=== PATIENT | female | born 1990 | race Caucasian/White ===

== ENCOUNTER 2020-09-02 06:58 | Emergency (ER) | payer MEDICAID, SELFPAY ==
[2020-09-02 06:59] VITALS: BP 120/79; PULSE 69; RESP 18; TEMP 36.2; O2SAT 100; BMI 19.5
--- NOTE | 2020-09-02 07:33 | ED.VISSUMM ---
- ER Visit Summary Date of Service: 09/02/20 Chief Complaint: Vaginal bleeding History of Present Illness: The patient is a 29 F who presents with vaginal bleeding that has been getting worse over the past 3 to 4 days. Patient states she was recently on medication to stop the bleeding. Patient states she was tapered off of this. Patient states that when she stopped taking the medication her bleeding started again. Patient states she is having heavy vaginal bleeding. Patient states she is using 1 pad per hour while she is awake. She states she normally does not have any bleeding when she is sleeping. But the last couple days she has woken up and has had blood when she woke up. Patient states she only goes through 10-12 pads per day. Patient denies passing any clots. Patient denies any pelvic pain or cramping. Patient denies any vaginal discharge. Patient denies any urinary complaints. She states she was diagnosed with uterine polyp. Patient states that yesterday she brought her daughter to the emergency department. Patient states that she noticed her skin was more yellow yesterday when she was in the emergency department. Patient was not evaluated at that time. Physical Examination: Vital signs are stable. Patient is afebrile. Patient is in no acute distress. Pupils are equal, round, and reactive to light bilaterally. Extraocular muscles are intact. I do not appreciate any scleral icterus. Oral mucosa is pink and moist. Neck is supple. Trachea is midline. There is no JVD noted. Heart was regular rate and rhythm. Lungs are clear and equal bilaterally. Abdomen is soft. Bowel sounds are normal. There is no tenderness. There is no rebound or guarding noted. Skin is warm dry. Cranial nerves II through XII are intact. There are no focal motor or sensory deficits noted. Extremities are intact. There is no calf tenderness or edema. Test Results: CBC and comprehensive metabolic profile were essentially within normal limits. Serum hCG was negative. Urinalysis showed occult blood of 250 with 50-100 red blood cells. There is no evidence of urinary tract infection. Emergency Department Course and Treatment: Case was discussed with Vianney Torres, wood machinist with [facility]. She recommended placing the patient back on an Aygestin taper. Patient was given a prescription for this. Patient was instructed to follow-up with [facility] as scheduled. Patient understood and was agreeable with the plan. All questions were answered. Disposition: Discharge home Impression: Menorrhagia This note was generated with Nu-Med Plus dictation software. It may contain incorrect words, spelling, and punctuation that were not noted in review of the chart prior to signing ED Disposition - Plan for ED Patient: Disposition: Home or Assisted Living Diagnosis: Menorrhagia Instructions: ED Heavy Menstrual Bleeding Prescriptions: Norethindrone [Aygestin] 5 mg PO DAILY 9 Days #18 tab Transmission Status: Pending to [employer] #[id number] Referrals: Marisel Goldsmith MD [STAFF PHYSICIAN] - Keep Shan appointment
[2020-09-02 07:40] LABS: Absolute Lymphocyte Count 1.72 X10^3/uL (0.83-4.51); Absolute Neutrophil Count 2.4 X10^3/uL (2.0-7.7); Basophil# 0.05 X10^3/uL; Eosinophil# 0.43 X10^3/uL; Eosinophils% 8.7 % (0-5); Hematocrit 39.6 % (37-47); Hemoglobin 12.6 g/dL (12.0-15.0); Lymphocyte # 1.72 X10^3/ul (4.0); Lymphocyte % 34.7 % (19-41); Mean Corp Hgb Conc 31.8 g/dL (32-36); Mean Corpuscular Hgb 30.3 pg (27.0-32.0); Mean Corpuscular Volume 95.2 fL (81-99); Mean Platelet Vol. 9.1 fl (6.2-12.0); Monocyte# 0.34 X10^3/uL; Monocyte% 6.9 % (0-10); NRBC Flagged by Analyzer 0 % (0-5); Neutrophil % 48.5 % (47-70); Platelet Count 242 K/mm3 (150-450); RBC Distribution Width SD 45.5 fl (35.1-43.9); Red Blood Count 4.16 M/mm3 (4.2-5.4)
[2020-09-02 07:44] LABS: Prothrombin Time (Protime)PT. 12.9 SECONDS (11.7-14.9)
[2020-09-02 07:45] LABS: Partial Thromboplast Time 27.2 Seconds (24.1-36.2)
[2020-09-02 07:47] LABS: Mucous, Urine 0 SEEN /hpf (<or=2+)
[2020-09-02 07:49] LABS: Internal QC Validated? YES +Cl - CLEAR BKGD; Pregnancy, Serum, hCG Quali. NEGATIVE Negative
[2020-09-02 07:49] LABS: Color, Urine Red (Yellow); Glucose, Dipstick Normal (Normal); Ketone-Dipstick 5 mg/dl (Negative); Leukocyte Esterase-Dipstick 25 /ul (Negative); Nitrite-Dipstick Negative (Negative); Occult Blood-Urine 250 /ul (Negative); Protein-Dipstick 100 mg/dl (Negative); Specific Gravity, Urine 1.015 (1.002-1.030); Urine Bilirubin Dipstick Negative (Negative); Urine Clarity Cloudy (Clear); Urine Urobilinogen Normal (Normal)
[2020-09-02 07:50] LABS: ALB/GLOB Ratio 1.2 RATIO (0.9-2.4); AST(SGOT) 12 U/L (15-37); Alanine Aminotransfer ALT/SGPT 23 U/L (13-56); Albumin, Serum 3.6 g/dL (3.2-5.0); Alkaline Phosphatase 57 U/L (45-117); Anion Gap 3 (5-15); BUN 14 mg/dL (7-18); BUN/Creat Ratio 16.8 RATIO (10-20); Calcium,Total 8.2 mg/dL (8.5-10.1); Chloride 111 mmol/L (98-107); Creatinine, Serum 0.84 mg/dL (0.55-1.02); EST Glomerular Filtration Rate 86 mL/min (>60); Est Glom Filt Rate - Afr Amer 104 mL/min (>60); Globulin 3.1 g/dL (2.2-4.2); Glucose 82 mg/dL (74-106); Potassium 3.6 mmol/L (3.5-5.1); Protein, Total 6.7 g/dL (6.4-8.2); Sodium Level 142 mmol/L (136-145)
[2020-09-02 07:56] LABS: Bacteria 1+ /hpf (None Seen); Red Blood Cells-Urine 50-100 SEEN /hpf (0-5); Squamous Epithelial Cells - UA 0-5 SEEN /hpf (5-10); White Blood Cells 0-5 SEEN /hpf (0-5)
[2020-09-02 08:31] VITALS: BP 113/62; PULSE 74; RESP 15; O2SAT 98
== END 2020-09-02 08:34 | disposition home or self-care (01) ==
PROVIDERS: Emergency Provider Emergency Medicine; PCP Internal Medicine
DX: N92.0 Excessive and frequent menstruation with regular cycle (principal); Z72.0 Tobacco use
CPT/HCPCS: 80053; 81001; 84703; 85025; 85610; 85730; 99284; A4216

== ENCOUNTER 2020-09-15 09:30 | Day surgery (SDC) | payer MEDICAID, SELFPAY ==
--- NOTE | 2020-09-07 10:45 | PCM.HP.BLA ---
History and Physical Date of Admission: 09/15/20 HPI: The patient is a 29 year old female presenting for pre-operative visit. She is scheduled for?Hysteroscopy D&C, for?AUB on?09/15/2020. ??Procedure discussed along with risks, benefits and complications. ?Other alternatives discussed for management. Consent form signed??Yes.? PAST MEDICAL HISTORY PAST MEDICAL HISTORY Diagnosis Date ? Alcohol abuse ? ? Anemia ? ? Anxiety ? ? Bipolar 1 disorder (HCC) ? ? Depression ? ? Drug abuse (HCC) ? ? Eating disorder ? ? PTSD (post-traumatic stress disorder) ? ? ? PAST SURGICAL HISTORY PAST SURGICAL HISTORY Procedure Laterality Date ? NONE ? CURRENT MEDICATIONS Current Outpatient Medications Medication Sig Dispense Refill ? BIOTIN ORAL Take 50 mg by mouth once daily. ? ? ? norethindrone (AYGESTIN) 5 mg tablet Take 1 tablet TID until bleeding stops, the BID x 3 days, the daily x 3 days. 35 tablet 0 ? Desogestrel-Ethinyl Estradiol (APRI) 0.15-0.03 mg per tablet Take 1 tablet by mouth once daily. 1 Package 11 ? sertraline (ZOLOFT) 100 mg tablet Take 1 tablet by mouth once daily. 30 tablet 5 ? No current facility-administered medications for this visit. ? ALLERGIES:?Latex ? PERSONAL HISTORY:? SOCIAL HISTORY Social History ? Tobacco Use ? Smoking status: Current Every Day Smoker ? ? Packs/day: 0.50 ? ? Types: Cigarettes ? ? Start date: 09/16/1999 ? Smokeless tobacco: Never Used ? Tobacco comment: 2 PPD first 5 years. Vaping Use ? Vaping Use: Never used Substance Use Topics ? Alcohol use: Not Currently ? ? Comment: clean since 04/2017 ? Drug use: Not Currently ? ? Types: Crystal Meth ? ? Comment: clean since 04/2017 ? FAMILY HISTORY:? FAMILY HISTORY FAMILY HISTORY Problem Relation Age of Onset ? Schizophrenia Mother ? ? Parkinson?s Disease Father ? ? Heart Attack Father ? ? Coronary Artery Disease Father ? ? Learning disabilities Brother ? ? Cancer Maternal Grandmother ? ? Alcohol/Drug Maternal Grandmother ? ? Heart Attack Maternal Grandfather ? ? Learning disabilities Brother ? ? Heart Attack Paternal Grandfather ? ? REVIEW OF SYMPTOMS: GENERAL: denies fevers or chills ENDOCRINOLOGY: has not been on steroids Cardiology : denies palpitations or chest pain Respiratory: denies SOB or cough Hematology: denies history of prolonged bleeding or easy bruising or VTE Allergy: Denies history of personal or family history of allergy to anesthesia ? ? PHYSICAL EXAMINATION: ? VITALS:?Last menstrual period 08/21/2020. ? GENERAL:??The patient is well nourished, well hydrated in no acute distress. ?, The patient is oriented to time, place, and person. NECK:?Supple. No lynphadenopathy, normal thyroid, no thyromegaly. LUNGS:?Clear to auscultation bilaterally. no wheezes, rhonchi or rales HEART:?Regular rate and rhythm, Normal heart sounds and No murmurs or gallops ? IMPRESSION:?AUB ? PLAN:???The risks/benefits/alternatives and personal involved for the planned?hysteroscopy D&C with possible polyp resection?were reviewed with the patient. Her questions were answered to her satisfaction and she desires to proceed. ?Consent was signed. ?I reviewed with her postop instructions and expectations. ? ? I have reviewed and updated past medical and surgical history, medications and allergies. This H&P was completed in my office on 09/07/2020. Procedure Criteria Procedure Type: Elective COVID Risk Discussion: The surgeon/proceduralist and patient have discussed in detail the risk of exposure to and/or potential harm posed by the COVID-19 virus with having a surgery/procedure at this time versus the risk of delaying the surgery/procedure. It is not possible to know either the risk of delaying the surgery or procedure or chance of getting an infection with perfect accuracy, but a joint decision was made between the patient and the surgeon/proceduralist to proceed at this time with the scheduled surgery/procedure as indicated on the consent form.
[2020-09-15] VITALS (16 sets, daily range): BP systolic 91–109; BP diastolic 59–76; PULSE 54–67; RESP 16; TEMP 36.5–37.1; O2SAT 98–100; BMI 19.5
[2020-09-15 10:16] LABS: Internal QC Validated? YES +Cl - CLEAR BKGD; Pregnancy, Urine Negative Negative
[2020-09-15] MEDS: Celecoxib 200 MG Capsule 400 MG PO (10:16)
[2020-09-15] MEDS: Lactated Ringers 1,000 ML 100 ML IV (10:16)
[2020-09-15] MEDS: Acetaminophen 500 MG Tablet 1000 MG PO (10:17)
--- NOTE | 2020-09-15 11:30 | EMB_PTH ---
PATIENT: ARAMIS BRYANT [place] [facility] [id number] AGE/SX: 29/F ROOM: RE09/15/[address]: Dr. Marisel Goldsmith MD : 1990 BED: DIS: 09/15/2020 SPEC #: [id number] RECD: 09/15/20 13:25 STATUS: LA REBryan #: [id number] MARIZA: 09/15/20 11:[address]: Marisel Goldsmith DEPT: SURGICAL PATHOLOGY RECD BY: Louisa Whitney ENTERED: 09/16/20 07:12 SP TYPE: ENDOM BX/C OTHR DR: Dr. Williams Cevallos MD Tissues: Endometrium, NOS Procedures: Surgery Specimen Level IV HEADER OPERATION: Hysteroscopy D & C Symphion, polypectomy PRE-OP DIAGNOSIS: Abnormal uterine bleeding TISSUE SUBMITTED: Endometrial curettings and polyp MICROSCOPIC DIAGNOSIS Endometrial curettings and polyp: Early secretory endometrium. Fragments of myometrium. SJ:sabina 09/19/2020 MICROSCOPIC DESCRIPTION Slides are reviewed. GROSS DESCRIPTION Received in fixative is one container labeled with the patient's name and designated endometrial curettings and polyp. The specimen consists of multiple irregular fragments of light hernández soft tissue that in aggregate measure 6 x 3 x 0.2 cm. The specimen is totally submitted in two cassettes. / AM:sabina 09/16/20 TC:4 CPT: 43840
--- NOTE | 2020-09-15 12:10 | DCINST_ITS ---
Discharge Diet: No Restrictions Discharge Activity: Return to Normal Activity, May Shower, May Take a Tub Bath - in 2 weeks. Instructions: Dilation and Curettage Allergies/Adverse Reactions: Allergies latex Allergy (Verified 09/15/20 10:01) Rash Medications to take at Discharge Sertraline HCl [Zoloft] 100 mg PO DAILY 09/02/20 Desogestrel-Ethinyl Estradiol [Juleber 28 Day Tablet] 1 each PO DAILY 09/08/20 Ibuprofen [Motrin] 600 mg PO Q6H PRN #60 tab 09/15/20 The following prescriptions were given: Ibuprofen [Motrin] 600 mg PO Q6H PRN #60 tab PRN Reason: Pain Transmission Status: [facility] to [facility] Primary Care Physician: Williams Cevallos MD [Primary Care Provider] - Test Results: Test results from this visit will be discussed in further detail at your follow- up appointment, if applicable. Please Follow Up With: Marisel Goldsmith MD - [phone] When: 8-10 weeks or as needed
[2020-09-15] MEDS: Lidocaine 1% /Epi 1:100 (20ml) 20 ML Vial (12:17)
--- NOTE | 2020-09-15 12:28 | PCM.OPRPT ---
Report of Operation Date of Procedure: 09/15/20 Pre-Operative Diagnosis: Abnormal uterine bleeding Post-Operative Diagnosis: same Surgery/Procedure Performed:: Hysteroscopy D&C with Symphion device, polyp resection Description of Surgical Findings:: Normal cervix and vagina. Endometrial cavity had a fundal lip. Both tubal ostia were identified. Otherwise unremarkable endometrial cavity software quality analyst: None Type of Anesthesia:: MAC/Supplemental/Local Special Medications: none Specimen's removed: endometrial curettings and polyp Drains: none Estimated Blood Loss (mL): 5 Fluids Replaced: 800 mL Description of Procedure: The patient was taken to the OR where she was prepped and draped in dorsal lithotomy position. The weighted speculum was placed in the vagina and the anterior lip of the cervix was grasped with a single-tooth tenaculum. A paracervical block was administered with [1% lidocaine with 1-100,000 epinephrine solution]. The cervix was dilated serially with Hegar dilators. The Symphion hysteroscope was placed into the uterine cavity and the above findings were noted. Bilateral tubal ostia [were] identified. The resection device was readied and inserted. A visual resection of the polyp in the endometrium were performed.. The instruments were removed from the vagina. The specimen was handed off and sent to pathology. All sponge and needle counts were correct. Vaginal sweep was performed by me. The patient was awakened and taken to the recovery room in stable condition. Hysteroscopic fluid deficit was calculated to be 450 cc of normal saline. start time 1215pm Stop time 1226pm Specimen- endometrial curettings and polyp Grafts/Implants Used: none - Complications none - Admit VTE Documentation VTE Present on Admission: No VTE Mechan Device Prophylaxis: SCD's VTE Pharm Prophylaxis ordered?: No Reason prophylaxis not ordered:: Procedure Not Indicated
== END 2020-09-15 15:29 | disposition home or self-care (01) ==
LOC: SDC 09:30 → AC 09:31
PROVIDERS: PCP Internal Medicine; Referring Provider Obstetrics & Gynecology; Visit Provider Obstetrics & Gynecology
PROC: 0UB98ZZ Excision of Uterus, Via Natural or Artificial Opening Endoscopic (ICD-10-PCS; CPT 58558; principal; 2020-09-15 11:15)
DX: N93.9 Abnormal uterine and vaginal bleeding, unspecified (principal); N84.0 Polyp of corpus uteri; F31.9 Bipolar disorder, unspecified; F41.9 Anxiety disorder, unspecified; F43.10 Post-traumatic stress disorder, unspecified; F17.210 Nicotine dependence, cigarettes, uncomplicated; Z20.822 Contact with and (suspected) exposure to COVID-19; Z79.899 Other long term (current) drug therapy
CPT/HCPCS: 00952; 58558; 81025; 87426; 88305; C9803; J7120

== ENCOUNTER 2020-12-22 22:18 | Emergency (ER) | payer MEDICAID, SELFPAY ==
[2020-09-15 10:02] VITALS: BMI 19.5
[2020-12-22 22:19] VITALS: BP 108/75; PULSE 76; RESP 16; TEMP 36.6; O2SAT 96; BMI 19.9
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
[2020-12-22] MEDS: Ketorolac 15 MG/ML Vial IM (22:45)
[2020-12-22 22:47] VITALS: O2SAT 99
== END 2020-12-22 22:49 | disposition home or self-care (01) ==
LOC: ED 22:39
PROVIDERS: Emergency Provider Student in an Organized Health Care Education/Training Program; PCP Internal Medicine
DX: S16.1XXA Strain of muscle, fascia and tendon at neck level, initial encounter (principal); V89.2XXA Person injured in unspecified motor-vehicle accident, traffic, initial encounter; Y93.89 Activity, other specified; Y92.410 Unspecified street and highway as the place of occurrence of the external cause; Y99.9 Unspecified external cause status; F17.210 Nicotine dependence, cigarettes, uncomplicated
CPT/HCPCS: 96372; 99282

== ENCOUNTER 2021-06-16 12:00 | Emergency (ER) | payer MEDICAID, SELFPAY ==
[2021-06-16 12:01] VITALS: BP 122/81; PULSE 96; RESP 16; TEMP 36.6; O2SAT 99; BMI 19.8
--- NOTE | 2021-06-16 12:39 | RAD_ITS ---
STUDY: X-RAY CHEST REASON FOR EXAM: Female, 30 years old. Chest pain TECHNIQUE: Single AP portable view of the chest. COMPARISON: None. FINDINGS: EKG electrodes are seen. The lungs are clear and expanded. There is no demonstrated pleural abnormality. Normal size heart. Normal mediastinum and ifeoma. Normal visualized pulmonary arteries. Normal visualized aortic arch and descending thoracic aorta. Normal visualized thoracic spine. Normal visualized ribs, clavicles, and shoulders. There is no demonstrated abnormality of the visualized soft tissue structures of the upper abdomen. RAD/Chest 1 View (Portable) IMPRESSION: Normal x-ray examination of the chest. Electronically Signed: David Levy MD at 13:03 EST , Service support ,
--- NOTE | 2021-06-16 12:39 | EKG12_ITS ---
Test Reason : PALPATATIONS Blood Pressure : / mmHG Vent. Rate : 079 BPM Atrial Rate : 079 BPM P-R Int : 128 ms QRS Dur : 088 ms QT Int : 380 ms P-R-T Axes : 075 081 065 degrees QTc Int : 435 ms Normal sinus rhythm Normal ECG Confirmed by NANCY GALAN, KARO ([id number]), tape editor SUSAN GAN ([id number]) on 06/19/2021 11:02:36 AM Referred By: MARBIN/SALENA Confirmed By:KARO CRUZ MD
[2021-06-16 12:51] LABS: Absolute Neutrophil Count 2.1 X10^3/uL (2.0-7.7); Basophil# 0.03 X10^3/uL; Basophil% 0.7 % (0-1); Eosinophil# 0.28 X10^3/uL; Eosinophils% 6.5 % (0-5); Hemoglobin 12.8 g/dL (12.0-15.0); Lymphocyte % 36.9 % (19-41); Mean Corp Hgb Conc 33.7 g/dL (32-36); Mean Corpuscular Hgb 30.5 pg (27.0-32.0); Mean Corpuscular Volume 90.5 fL (81-99); Mean Platelet Vol. 9.3 fl (6.2-12.0); Monocyte# 0.32 X10^3/uL; Monocyte% 7.4 % (0-10); NRBC Flagged by Analyzer 0 % (0-5); Neutrophil % 48.3 % (47-70); Platelet Count 235 K/mm3 (150-450); RBC Distribution Width CV 13.2 % (11.6-14.6); RBC Distribution Width SD 43.4 fl (35.1-43.9); White Blood Count 4.3 K/mm3 (4.4-11.0)
[2021-06-16 13:05] LABS: Anion Gap 2 (5-15); BUN 11 mg/dL (7-18); Calcium,Total 8.7 mg/dL (8.5-10.1); Chloride 111 mmol/L (98-107); Creatinine, Serum 0.69 mg/dL (0.55-1.02); EST Glomerular Filtration Rate 107 mL/min (>60); Est Glom Filt Rate - Afr Amer 129 mL/min (>60); Estimated Creatinine Clearance 116.04 ml/min; Glucose 85 mg/dL (74-106); Potassium 3.6 mmol/L (3.5-5.1); Sodium Level 140 mmol/L (136-145); Troponin-I HS < 3 pg/mL (3.0-54.0)
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
[2021-06-16 14:44] VITALS: BP 104/74; PULSE 62; RESP 16; O2SAT 98
== END 2021-06-16 14:44 | disposition home or self-care (01) ==
PROVIDERS: Emergency Provider Student in an Organized Health Care Education/Training Program; PCP Internal Medicine; Visit Provider Student in an Organized Health Care Education/Training Program
DX: R00.2 Palpitations (principal); F17.210 Nicotine dependence, cigarettes, uncomplicated; F32.A Depression, unspecified; F41.9 Anxiety disorder, unspecified; Z79.899 Other long term (current) drug therapy
CPT/HCPCS: 71045; 80048; 84484; 85025; 93005; 99285; A4216

== ENCOUNTER 2021-10-30 21:13 | Emergency (ER) | payer MEDICAID, SELFPAY ==
[2021-10-30 21:14] VITALS: BP 113/78; PULSE 96; RESP 15; TEMP 37; O2SAT 98; BMI 19.9
--- NOTE | 2021-10-30 21:48 | EX.ED.UPPERE ---
HPI History of Present Illness Chief Complaint: Laceration Informant: patient Onset/Context/Timing Onset: Today Context: Sudden Onset Timing: Continuous Quality of Pain: - (sore) Current Severity: Mild Maximum Severity: Moderate Worsened by: palpation Relieved by: leaving alone Associated Symptoms Associated Symptoms: Negative for Parasthesia, Weakness and Loss of Funtion Narrative Narrative: Patient states she went on onto her porch and accidentally locked the door behind her, her 1-year-old child was inside and she broke the glass to unlock the door to get back into her. She sustained a laceration to her left small finger as a result. [id number]. Tetanus Immunization: <5 years [facility] Medical History Anxiety Depression Home Medications hydroxyzine pamoate 25 mg PO DAILY 06/16/21 [History Last Taken Unknown] melatonin 3 mg PO PCHS 06/16/21 [History Last Taken Unknown] Allergy/AdvReac Type Severity Reaction Status Date / Time latex Allergy Rash Verified 10/30/21 21:14 Social History Smoking Status: Current every day smoker tobacco type: cigarettes ROS ROS ED Constitutional Constitutional ED: Denies chills or fever(s) Musculoskeletal Musculoskeletal: Reports extremity pain; Denies neck pain Integumentary Reports as per HPI, laceration and wounds; Denies Abrasions or rash Neurologic Neurologic: Denies paresthesias or weakness EXAM Physical Exam Const Vital Signs: 10/30/21 21:14 Temperature 98.6 F Temperature Source Temporal Pulse Rate 96 Respiratory Rate 15 Blood Pressure 113/78 Blood Pressure Mean 89 Pulse Ox 98 Oxygen Delivery Method Room Air Positive well nourished and well developed General Appearance ED: well developed and NAD Neck full ROM and supple Back/Spine normal ROM and normal to inspection Extremity full ROM Extremity Narrative: No bony tenderness, full range of motion left hand/fingers. No nail damage or subungual hematoma/laceration. Neuro oriented x3, no focal motor deficits and no sensory deficits noted Sensorium / Orientation: alert Psych mental status grossly normal and thought process normal Skin Skin Narrative: 3 cm linear full-thickness subcutaneous laceration to the ulnar aspect of the distal phalanx left fifth finger. It goes to the side of the nail but does not damage the nail or the cuticle. Rashes: no rashes Procedures Lacerations L small finger: Length: 3 cm Depth: Sub Q Shape: Linear Prep: Sterile Conditions and Chlorhexadine Laceration repair: Lidocaine with epi (1cc) and Local Irrigated (ml): 40 Number of Sutures/David: 4 Suture Information: Ethilon, Simple and 5-0 Discharge Plan Triage Chief Complaint: Laceration ED Provider: Ben Estrada Dx/Rx/DC Orders Clinical Impression: Laceration of left little finger w/o foreign body w/o damage to nail Instructions: ED Laceration, Hand: All Closures Prescriptions: No Action melatonin 3 mg tablet 3 mg PO PCHS RF: 0 hydroxyzine pamoate 25 mg capsule 25 mg PO DAILY RF: 0 Primary Care Provider: Williams Cevallos Referrals: Williams Cevallos MD [Primary Care Provider] - 7 Days for suture removal (Or may visit urgent care or ER) Disposition Disposition: Home, Self Care
== END 2021-10-30 22:05 | disposition home or self-care (01) ==
PROVIDERS: Emergency Provider Emergency Medicine; PCP Internal Medicine; Visit Provider Emergency Medicine
DX: S61.217A Laceration without foreign body of left little finger without damage to nail, initial encounter (principal); W25.XXXA Contact with sharp glass, initial encounter; Y92.008 Other place in unspecified non-institutional (private) residence as the place of occurrence of the external cause; Y93.89 Activity, other specified; F17.210 Nicotine dependence, cigarettes, uncomplicated
CPT/HCPCS: 12002; 11750; 99283

== ENCOUNTER 2021-11-20 18:30 | Emergency (ER) | payer MEDICAID, SELFPAY ==
[2021-11-20] VITALS (7 sets, daily range): BP systolic 94–147; BP diastolic 60–90; PULSE 59–129; RESP 15–22; TEMP 36.2–37.6; O2SAT 97–99; BMI 18.0
--- NOTE | 2021-11-20 18:42 | EKG12_ITS ---
Test Reason : PSYCH Blood Pressure : / mmHG Vent. Rate : 057 BPM Atrial Rate : 057 BPM P-R Int : 144 ms QRS Dur : 088 ms QT Int : 412 ms P-R-T Axes : 075 085 071 degrees QTc Int : 401 ms Sinus bradycardia Incomplete right bundle branch block Confirmed by NANCY GALAN, KARO ([id number]), society editor SUSAN GAN ([id number]) on 11/21/2021 9:05:21 AM Referred By: SHANELL Confirmed By:KARO CRUZ MD
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
[2021-11-20] MEDS: Ziprasidone IM 20 MG/ML VIAL IM (19:02)
[2021-11-20] MEDS: LORazepam 2 MG/ML Syringe IM (19:25)
[2021-11-20] MEDS: DiphenhydrAMINE 50 MG/ML Syringe IM (19:25)
[2021-11-20] MEDS: Haloperidol Lactate 5 MG/ML Vial IM (19:25)
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
[2021-11-20 20:16] LABS: Absolute Lymphocyte Count 1.17 X10^3/uL (0.83-4.51); Absolute Neutrophil Count 4.7 X10^3/uL (2.0-7.7); Basophil# 0.03 X10^3/uL; Basophil% 0.5 % (0-1); Eosinophil# 0.08 X10^3/uL; Eosinophils% 1.2 % (0-5); Hematocrit 34.2 % (37-47); Lymphocyte # 1.17 X10^3/ul (0.83-4.51); Lymphocyte % 18.2 % (19-41); Mean Corp Hgb Conc 32.2 g/dL (32-36); Mean Corpuscular Hgb 29.6 pg (27.0-32.0); Mean Corpuscular Volume 92.2 fL (81-99); Mean Platelet Vol. 9.2 fl (6.2-12.0); Monocyte# 0.37 X10^3/uL; Monocyte% 5.8 % (0-10); NRBC Flagged by Analyzer 0 % (0-5); Neutrophil # 4.74 X10^3/uL (2.7-7.7); Neutrophil % 73.8 % (47-70); Platelet Count 213 K/mm3 (150-450); RBC Distribution Width CV 13.4 % (11.6-14.6); RBC Distribution Width SD 45.6 fl (35.1-43.9); Red Blood Count 3.71 M/mm3 (4.2-5.4); White Blood Count 6.4 K/mm3 (4.4-11.0)
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
[2021-11-20 20:34] LABS: Anion Gap 6 (5-15); BUN 7 mg/dL (7-18); BUN/Creat Ratio 7.4 RATIO (10-20); Calcium,Total 8.6 mg/dL (8.5-10.1); Chloride 113 mmol/L (98-107); Creatinine, Serum 0.95 mg/dL (0.55-1.02); EST Glomerular Filtration Rate 73 mL/min (>60); Est Glom Filt Rate - Afr Amer 89 mL/min (>60); Estimated Creatinine Clearance 82.43 ml/min; Glucose 106 mg/dL (74-106); Potassium 3.3 mmol/L (3.5-5.1); Sodium Level 145 mmol/L (136-145)
[2021-11-20 20:35] LABS: Internal QC Validated? YES +Cl - CLEAR BKGD; Pregnancy, Serum, hCG Quali. NEGATIVE Negative
--- NOTE | 2021-11-20 20:35 | CM.ED ---
Addendum entered by Matilda Hobson 11/20/21 20:57: Telephone call to Crisis to update. Referral sent to Crisis so crisis is able to continue work on psych placement for pt. Original Note: Social Work Note SW faxed referral to [facility] and [facility]. Matilda Hobson FACILITY SERVICE ASSOCIATE, INCLUSION MANAGER
[2021-11-20 21:21] LABS: Amphetamine Urine VISTA NEGATIVE (<1000 ng/mL); Barbiturate Urine VISTA NEGATIVE (< 200 ng/mL); Benzodiazepine Urine VISTA NEGATIVE (< 200 ng/mL); Cocaine Urine VISTA NEGATIVE (< 300 ng/mL); Ecstacy Urine VISTA NEGATIVE (< 500 ng/mL); Methadone Urine VISTA NEGATIVE (< 300 ng/mL); PCP Urine VISTA NEGATIVE (< 25 ng/mL); THC Urine VISTA POSITIVE (< 50 ng/mL); Vista UDS pH Range 6
[2021-11-21] VITALS (12 sets, daily range): BP systolic 85–101; BP diastolic 53–68; PULSE 55–66; RESP 16–58; O2SAT 16–100
[2021-11-21] MEDS: DiphenhydrAMINE 50 MG/ML Syringe 25 MG IM (01:44)
[2021-11-21] MEDS: LORazepam 2 MG/ML Syringe IM (01:44)
[2021-11-21] MEDS: Haloperidol Lactate 5 MG/ML Vial IM (01:44)
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
--- NOTE | 2021-11-21 01:45 | ED.RN ---
PT WAKES UP AND IS DEMANDING TO SEE HER DAUGHTER. INFORMED BY RN OF WHERE PT IS, REASONING FOR BEING HERE, AND TO GO BACK INTO PT ROOM. PT REFUSED AND TRIED TO RUN DOWN HALLWAY. PT STOPPED AND PUT BACK INTO ROOM.
--- NOTE | 2021-11-21 08:06 | ED.RN ---
SPOKE WITH [facility] TRANSFER LINE. PT. HAS BEEN ACCEPTED, PENDING THAT PT. WILL NOT BE MEDICATED OR RESTRAINED ANYMORE PRIOR TO ARRIVAL AT [place]. PT. CANNOT ARRIVE UNTIL 1330 TODAY, DUE TO PENDING BED ASSIGNMENT AVAILABILITY.
--- NOTE | 2021-11-21 08:17 | NURSING ---
SPOKE WITH NATALIE FROM [facility] FOR 12:30 TO WIP
--- NOTE | 2021-11-21 10:07 | CM.ED ---
Social Work Note Telephone call to Crisis who confirms pt has been accepted to [facility]. SW received call from James with [facility] CPS requesting information pt's discharge. James updated that pt will go to [facility] today pending she does not need restrained again before transportation. Matilda Hobson POULTICE MACHINE OPERATOR, MEAT MANAGER
--- NOTE | 2021-11-21 11:53 | CM.ED ---
Social Work Note Pt has been accepted to [facility]. Accepting physician is Mayte Karimi NP. Pt is going to Acute Unit. Matilda Hobson DRY CLEANER PRESSER, COREMAKER SUPERVISOR
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
== END 2021-11-21 12:12 ==
PROVIDERS: Emergency Provider Emergency Medicine; PCP Internal Medicine; Visit Provider Emergency Medicine
DX: F29 Unspecified psychosis not due to a substance or known physiological condition (principal); R45.1 Restlessness and agitation; F32.A Depression, unspecified; F41.9 Anxiety disorder, unspecified; F17.210 Nicotine dependence, cigarettes, uncomplicated
CPT/HCPCS: 80048; 80307; 82077; 84703; 85025; 87811; 93005; 96372; 99285; J3486

== ENCOUNTER 2022-01-01 08:00 | Outpatient (RCR) | payer MEDICAID, SELFPAY ==
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
--- NOTE | 2022-01-01 10:05 | BH.SGPN.GN ---
Behaviors/Verbalizations/Mental Status: [] Client alert and oriented, neatly dressed and groomed. Eye contact good. Motor activity appropriate. Speech within normal limits. Affect constricted, mood euthymic and anxious. Thoughts linear, logical, no signs of hallucinations or delusions Client Response/Progress/Benefit: [] Client's 1st day in program and attentive in group AEB providing input throughout group and writing notes. Attentive during psychoeducation on 4 types of conflict styles (Competing, Collaborating, Avoiding, and Accommodating). Worked with group to define conflict and identify how conflict is helpful. With peers identified barriers to addressing or managing conflict which included: fear of upsetting others, fear of the outcome, and lack of confidence. Client believes she uses accommodating and competing styles the most. Client shared that she feels like she is learning how to deal with conflict after never talked things through when she was growing up. Appeared to benefit from group due to increase insight and awareness of benefits to conflict, conflict styles, and obstacles to managing conflict. Will continue in IOP to increase overall functioning, prevent decompensation, and increase coping utilization. Narrative Note: []
--- NOTE | 2022-01-01 11:07 | BH.SGPN.GN ---
Behaviors/Verbalizations/Mental Status: [] Client alert and oriented, neatly dressed and groomed. Eye contact good. Motor activity appropriate. Speech within normal limits. Affect constricted, mood euthymic and anxious. Thoughts linear, logical, no signs of hallucinations or delusions. Client Response/Progress/Benefit: [] Client engaged in session AEB contributing to discussion and engaging in activity. Client did well to review current conflict style and its impact on mental health. Attentive during discussion on strategies for more effectively managing conflict in personal life. Client participated in activity and did well to be assertive and collaborating. Client given handout on fair fighting rules. Client discussed how she plans on practicing expressing herself in words and utilizing I statements. Appeared to benefit from gaining strategies to help client better manage conflict. Will continue IOP tx to reduce negative thinking patterns, prevent decompensation, and increase self-care. Narrative Note: []
--- NOTE | 2022-01-01 14:19 | BH.COMM ---
Communication Note - Communication with Client Communication Note: Therapist met briefly with client to build rapport, review first day in IOP and discussed treatment goals for IOP. Client reported she is seeking treatment because she has to be here in order to get her daughter back from foster care. Client stated she lost custody of her daughter after smoking marijuana, getting really angry which she stated led to her hospitalization. 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 Client reported she was angry that she didn't have any support. Client stated her mom is in psychiatric facility due to having paranoid schizophrenia and committing a murder when client was 5 years old. Client's father is . Client reports limited relationship with her brothers. Client stated while in IOP she would like to work on being able to communicate better. Client reported she often will yell when she is upset which has caused issues with interpersonal relationships. Client reported she also wants to work on being able to ask for help. Client stated first day in IOP went good and will continue.
--- NOTE | 2022-01-01 15:14 | BH.COMM ---
Communication Note - Communication with Client Communication Note: Met with pt to complete initial paperwork. No significant changes to pre-admission screening. Completed [place] Suicide Screening. Mild-moderate risk. Pt reports long-standing suicidal ideations for most of his adult life. Denies any SI or passive thoughts of currently. Pt reports history of three previous suicide attempts including cutting her wrist and attempting to hang herself. Pt shared her father found her when she cut her wrists and the rope or a branch broke when pt tried to hang self. No attempts since then and this was about 15 years ago. Pt reports she has no access to weapons. Pt considering this. Pt did not represent as an imminent threat to self or others. Future oriented. Case discussed with Dr. Gant with plan to admit to IOP level of care with dx of Bipolar 1 disorder versus schizoaffective disorder
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
--- NOTE | 2022-01-03 10:10 | BH.SGPN.GN ---
Behaviors/Verbalizations/Mental Status: []Client alert and oriented, casually dressed and groomed. Hair slightly disheveled. Eye contact fair. Motor activity appropriate. Speech within normal limits. Affect congruent, mood euthymic. Thoughts linear, logical, no signs of hallucinations or delusions. Client Response/Progress/Benefit: []Client receptive to session AEB contributing to discussion and listening attentively to others. Taking notes. Worked with group to brainstorm the positive and negative aspects of stress on physical and mental health. Group did well to identify the benefits of stress as well as the impact of distress on performance and mental health. Client identified their personal top stressors as: losing custody of daughter, trying to manage college and full-time job, and cleaning her house. Client reports when the stress overflows client reacts with depressed and stops eating healthy. Client seemed to benefit from increased awareness of current stressors and impact stress has on mental health. Recommended to continue IOP tx to improve daily functioning, increase healthy coping skills and prevent decompensation.
--- NOTE | 2022-01-03 11:10 | BH.SGPN.GN ---
Behaviors/Verbalizations/Mental Status: []Client alert and oriented, casually dressed and groomed. Eye contact fair. Motor activity appropriate. Speech within normal limits. Affect constricted. Mood dysthymic and anxious. Thoughts linear, logical, no signs of hallucinations or delusions. Client Response/Progress/Benefit: []Client engaged in session AEB listening attentively to others and providing input throughout discussions. Client was an active participant in challenge activity. Client remained attentive during discussion about the 4 A's of managing stress and expressed connecting with the various benefits of each. Shared she would like to work on the skill of altering her responses to stressors outside her control. Client stated she wants to work on communicating her thoughts and asking for help. Client seemed to benefit from increased awareness of the impact of stress on mental health and increasing repertoire of stress management strategies. Will continue IOP tx to increase healthy coping, challenge distorted thoughts, improve emotion regulation and prevent decompensation.
[2022-01-03 11:37] VITALS: BP 123/75; PULSE 73
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
--- NOTE | 2022-01-03 13:01 | BH.DR.ITP ---
Initial Treatment Plan Patient Information Visit Information: ADMISSION DATE: EXPECTED LOS: 4-6 weeks Problems/Symptoms Problem #1:: Mood instability Symptom:: Depression, sadness, guilt, recent history of agitation and psychosis Problem #2:: Anxiety Symptom:: Worry, rumination, flashbacks
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
--- NOTE | 2022-01-08 10:10 | BH.SGPN.GN ---
Behaviors/Verbalizations/Mental Status: [] Client alert and oriented, neatly dressed and groomed. Eye contact good. Motor activity appropriate. Speech normal. Affect constricted, mood anxious and euthymic, Thoughts linear, logical, no signs of hallucinations or delusions. Client Response/Progress/Benefit: [] Client was engaged participant AEB client listening attentively to others and providing input in group. Attentive during psychoeducation on communication styles. Assisted group with identifying barriers of effective communication which included: ?being put down, cognitive distortions, and mood. Client identified they most often use passive communication style. Client reports she uses passive communication due to having lack of self- esteem. Benefited from increased awareness of different communication barriers, styles, and the importance of communicating effectively to improve mental wellness. Will continue IOP tx to prevent decompensation, increase positive communication, and improve daily functioning. Narrative Note: []
--- NOTE | 2022-01-08 11:10 | BH.SGPN.GN ---
Behaviors/Verbalizations/Mental Status: [] Client alert and oriented, casually dressed and groomed. Eye contact good. Motor activity appropriate. Speech within normal limits. Affect constricted, mood anxious and euthymic, Thoughts linear, logical, no signs of hallucinations or delusions Client Response/Progress/Benefit: [] Client responded well to session AEB client listening attentively to others and providing input during group discussion on the pay offs and costs of the different communication styles. Client recognizes negative impact on relationships when she doesn't use healthy communication style. Client did well in the activity to be assertive and ask for feedback. Recognizes if group wasn't assertive in activity, they wouldn't have been successful. Attentive during psychoeducation on interpersonal DBT skill VENESSA. Client set a goal to work on appearing more confident with increasing use of eye contact. Client seemed to benefit from increasing awareness of healthy strategies to improve communication. Client will continue IOP tx to improve successful communication, regulate emotions, and improve overall functioning. Narrative Note: []
--- NOTE | 2022-01-09 09:00 | BH.SGPN.GN ---
Behaviors/Verbalizations/Mental Status: []Pt alert and oriented, casually dressed and groomed. Eye contact good. Motor activity appropriate. Speech within normal limits. Affect congruent to mood, mood depressed. Thoughts linear, logical, no signs of hallucinations or delusions. Reviewed pt?s symptom tracker, no risk for suicidal ideation, plan, or intent as of 01/09/22 Client Response/Progress/Benefit: []Pt responded well to session, attentive and participating. Pt reports feeling depressed this morning as pt misses her daughter and pt became tearful. Provided pt a few minutes to vent and process this stressor and pt was offered emotional support. Pt stated she is working on getting her daughter back by doing IOP and following through with her care plan. Pt reflected on some of the coping skills she used recently which included breaking things she was going to trash instead of punching a wall. Pt recognizes that she can continue to work on emotional regulation and anger management, but this is a good step. Pt appeared to benefit from emotional support. Pt will continue IOP tx to prevent decompensation, reduce impulsivity and anger, and improve overall functioning. Narrative Note: []
--- NOTE | 2022-01-09 10:05 | BH.SGPN.GN ---
Behaviors/Verbalizations/Mental Status: [] Client alert and oriented, casually dressed and groomed. Eye contact good. Motor activity appropriate. Speech within normal limits. Affect constricted, mood euthymic. Thoughts linear, logical, no signs of hallucinations or delusions. Client Response/Progress/Benefit: [] Client was an active participant in activity and taking notes during group discussion. Attentive during psychoeducation on coping skills, why people use unhealthy coping skills, and how to replace unhealthy coping skills. Client stated that she typically coped by throwing and breaking things which led to her having to deal with the damage after her anger passed. Benefited from increased understanding of unhealthy coping skills and the need for developing healthy internal and external coping skills. Client will continue IOP tx to prevent decompensation, maintain safety, and improve emotional regulation. Narrative Note: []
--- NOTE | 2022-01-09 14:12 | BH.MDN ---
Multi-Disciplinary Note - Note 45-min Individual Time Started:: 11:10 Date: 01/09/22 Purpose of session/treatment goals addressed:: Purpose of session was to address goals 1 and 2 from MTP. Eye Contact:: Fair Motor Activity:: Appropriate Appearance:: Disheveled Speech:: Other - monotone Mood:: Euthymic Affect:: Constricted Thoughts:: Linear, Logical, No evidence of hallucinations/delusions noted Staff Interventions:: psychoeducation on: - cognitive triangle and behavior activation, CBT techniques, rapport building, strengths perspective, goal setting, other - identifying anger triggers and discussing communication skills Client Response:: Client reported she has been doing very good with managing work, therapy and completing her college coursework. Client stated it has been 45 days since she has had custody of her daughter. Client reported she does get 15 minute virtual visitation once a week. Client shared she doesn't get to see her daughter in person due to having cockroaches several weeks ago. Client stated she has pest control and no longer has cockroaches, but has to wait until gets approval from children services to meet in person. Client reported last night was difficult because she was missing her daughter. Client stated she woke up at 12am feeling upset and angry that she doesn't have her daughter so she went outside and broke little figurines she had in her house. Client reported breaking things helped her manage her anger instead of throwing something in her house. Client had difficulty identifying triggers to anger. Client able to identify not having a support system she can rely on as a trigger of anger. Client connected with importance of understanding her triggers so she can use skills to prevent anger outbursts. Client stated she has been doing better with getting in contact with supports in her life. Client reported she doesn't have any supports that she can talk to about her feelings. Client reported she tends to be passive but recognizes she sometimes comes off as aggressive. Client stated often when she is talking with one of her brothers he perceives her as being aggressive towards him. Discussed importance of being mindful of her tone of voice when communicating with others. Therapist elicited coping skills that have been helpful in the past. Client stated does self soothing with hands, look around room, and mindfulness. Client receptive to education about cognitive triangle and behavior activation. Client seemed to connect with idea of taking a walk, getting outside, and changing environment as skills she could use to combat environment. Client reported goal for today is to communicate with brother without yelling at him. Risks/Concerns:: denies suicidal ideation, intention or plan. future focused. Identifies daughter as her protective factor. Progress Toward Goals/Plan:: Progress noted with client reporting improved mood. Client continues to struggle with coping with anger by throwing things. Client expresses desire to be able to manage anger without throwing or breaking things. Client had difficulty expressing/identifying areas she is struggling in or what she would like to work on. Plan is to continue IOP to prevent decompensation and increase healthy coping. Time Stopped:: 11:50
--- NOTE | 2022-01-10 09:00 | BH.SGPN.GN ---
Behaviors/Verbalizations/Mental Status: []Pt alert and oriented, casually dressed and appropriately groomed. Eye contact fair. Motor activity appropriate. Speech monotone. Affect constricted, mood dysthymic. Thoughts linear, logical, no signs of hallucinations or delusions. Reviewed pt?s symptom tracker, no risk for suicidal ideation, plan, or intent. At times pt over shares personal information and specifics about past trauma. Client Response/Progress/Benefit: []Client respond well to session as evidenced by listening attentively to others and sharing thoughts and feelings. Client reported mental positive as taking melatonin last night which helped her sleep. Client stated she has a fear of taking sleep medications due to sleep paralysis she experienced in the past but was able to overcome this fear with a positive outcome. Client for additional mental positive as completing her portfolio project for college and turning it in. Additionally she has been studying for final exams which is something she has not done in the past. Client reported constant stressors not having her daughter due to CPS having custody currently. Client reported additional stressor is her car being in the shop so she has to walk everywhere. Client stated feeling ashamed because her daughter was taken away from her. Seem to benefit from expressing thoughts and feelings. Progress noted with client stating mood is improved and following through with therapy. Client did state she has interest in getting her medical marijuana card which could be hindrance to treatment since she has addiction history. Client to continue IOP to consistently apply healthy coping skills, challenge negative thoughts, and prevent decompensation.
--- NOTE | 2022-01-10 10:08 | BH.SGPN.GN ---
Behaviors/Verbalizations/Mental Status: []Pt alert and oriented, casually dressed and groomed. Eye contact good. Motor activity appropriate. Speech within normal limits. Affect constricted, mood content. Thoughts linear, logical, no signs of hallucinations or delusions Client Response/Progress/Benefit: []Pt responded well to session AEB listening to peers and sharing when prompted.?Pt listened throughout group discussion defining fixed mindset and what it can look like. Group discussed how fixed mindset affects mental health and why we use fixed thoughts. Pt participated in experiential activity encouraging pts to find solutions to a seemingly impossible task. Pt identified personal fixed thoughts in session which included ?this is not going to work, nothing has worked so far why would this, and I'm not good enough? Pt gained awareness that these thoughts reinforce depression and often lead to pt shutting down. Pt appeared to benefit from increased knowledge of fixed mindset and self-awareness of personal fixed thoughts. Will continue IOP tx to prevent decompensation, increase emotional regulation skills, and reduce impulsivity.? Narrative Note: []
--- NOTE | 2022-01-10 11:10 | BH.SGPN.GN ---
Behaviors/Verbalizations/Mental Status: [] Eye contact is good. Motor activity is appropriate. Appearance is casual. Speech is Appropriate. Mood is depressed. Affect is flat. Thoughts are linear and logical. No evidence of psychosis. Client Response/Progress/Benefit: [] Pt was an active participant in group discussion. Participated in their small group and was attentive during group psychoeducation on growth mindset vs fixed mindset. Pt and peers identified and shared examples of growth mindset which included; things can change, situations can improve, feedback whether positive or negative can be helpful, etc. Pt participated in interactive discussion and practiced changing a fixed mindset thought to a growth mindset thought. Pt's examples of growth mindset was I know in the past treatment options didn't work and I'm willing to keep trying. Benefited from increased awareness and insight of growth mindset and strategies to change from fixed mindset thoughts to growth mindset thoughts. Plan to continue in IOP to prevent decompensation or re-admission to psych unit, provide support, increase healthy coping, and encourage consistent use of medications. Narrative Note: []
--- NOTE | 2022-01-15 10:05 | BH.SGPN.GN ---
Behaviors/Verbalizations/Mental Status: []Pt alert and oriented, neatly dressed and groomed. Eye contact good. Motor activity appropriate. Speech within normal limits. Affect constricted-tearful at times, mood dysthymic. Thoughts linear, logical, no signs of hallucinations or delusions. Client Response/Progress/Benefit: []Pt attentive during psychoeducation and participated in group activity. Participated in interactive group discussion on internal and external barriers to mental health progress. Group identified examples of internal barriers as; negative thoughts, anxiety, cognitive distortions, and past experiences. Pt hans a picture of their current reality which pt described as I'm climbing a mountain by myself because I don't have any support. Pt became tearful and was receptive to emotional support from therapist. Pt also hans their desired reality which pt described as climbing the same mountain, but I have support encouraging me, the support I've created by making friends. Benefited from increased awareness of current barriers to progress as well as current/desired realities. Pt will continue IOP tx to improve mood stability, reduce impulsivity, and increase self-awareness. Narrative Note: []
--- NOTE | 2022-01-15 11:10 | BH.SGPN.GN ---
Behaviors/Verbalizations/Mental Status: [] Eye contact is good. Motor activity is appropriate. Appearance is casual. Speech is Appropriate. Mood is euthymic. Affect is flat. Thoughts are linear and logical. No evidence of psychosis. Client Response/Progress/Benefit: [] Pt was an active participant in group discussions. Attentive during psychoeducation. Engaged in experiential group activity. Able to identify barriers to desired reality which include: not asking for help, over-thinking, and isolation. Participated as group brainstormed ideas on how to cope with internal barriers that can keep individuals stuck. Benefited from group by identifying obstacles and solutions to desired reality.? Will continue in IOP to prevent decompensation, stabilize mood, increase healthy coping, provide support, and encourage medication compliance. Narrative Note: []
--- NOTE | 2022-01-16 09:05 | BH.SGPN.GN ---
Behaviors/Verbalizations/Mental Status: [] Eye contact is good. Motor activity is appropriate. Appearance is casual. Speech is Appropriate. Mood is depressed. Affect is flat. Thoughts are linear and logical. No evidence of psychosis. Reviewed daily check in sheet and no reports of suicidal ideations or intent. Client Response/Progress/Benefit: [] Pt participated at times during group discussions. Attentive. Daily symptom tracker notes 07/08 for depression. Tearful during her check-in related to fear, worry, and stress over upcoming psychiatric evaluation. She reports the [facility] is requiring her to get an extensive psychological evaluation which will have a significant impact on whether she can get her daughter back. She is concerned they will take her away. Based on her responses it would appear she has had an psychological evaluation in the past as she was talking about subjective tests like the Rorschach. Group was supportive and encouraging which was helpful. Pt reports that she has been following through with all the recommendations from [facility] and has been sober and medication compliant. Progress noted. Plan is to continue in IOP to prevent decompensation/re-admission, provide support, increase healthy coping, and encouragement medication compliance. Narrative Note: []
--- NOTE | 2022-01-16 11:15 | BH.SGPN.GN ---
Behaviors/Verbalizations/Mental Status: [] Client alert and oriented, casually dressed and groomed. Eye contact good. Motor activity appropriate. Speech within normal limits. Affect congruent, mood euthymic. Thoughts linear, logical, no signs of hallucinations or delusions. Client Response/Progress/Benefit: [] Client was an active participant throughout AEB contributing to discussion, providing personal examples, and taking notes. Client processed emotions felt in the activity and how they coped in the moment. Client provided input during discussion on the types of support our supports can provide. Client able to identify current support system and barriers that get in the way of using supports by drawing out their own support net. Client seemed to benefit from identifying the type of support client needs to work on improving. Client recommended to continue IOP tx to increase functioning, prevent decompensation, and increase emotional regulation skills. Narrative Note: []
--- NOTE | 2022-01-16 14:27 | BH.MDN ---
Multi-Disciplinary Note - Note 45-min Individual Time Started:: 10:40 Date: 01/16/22 Purpose of session/treatment goals addressed:: Purpose of session was to address goals 1 and 2 from MTP. Eye Contact:: Fair Motor Activity:: Appropriate Appearance:: Casual Speech:: Appropriate Mood:: Euthymic Affect:: Constricted Thoughts:: Linear, Logical, No evidence of hallucinations/delusions noted Staff Interventions:: motivational interviewing, psychoeducation on: - belly breathing, CBT techniques, rapport building, strengths perspective, taught coping skills Client Response:: Client reported she has been doing well over the last week. Client stated depression and anxiety are reduced. Client struggled identifying what areas she needs to work on while in therapy. After some discussion about what issues brought client to treatment client shared she was pink slipped after the police came to her apartment after she was reported for child abuse. Client stated that day a video was taken of her and was shared all over facebook of her jumping on top of her car with her daughter in her arms. Client stated she jumped on her car because she was angry about not having any support and stated she thinks smoking marijuana earlier that day didn't help. Client reported when the police arrived she was more combative with them because knew they were there to take away her daughter. Client agreed it could be helpful to identify things that could help her make healthier choices when under stress. Client stated avoiding isolating would be important for her to feel healthier and decrease anger. Client reported she also needs to take her medications consistently. Client stated prior to be hospitalized she had stopped her medications for two weeks. Client reported although she thinks she had a bad trip from marijuana the day she was hospitalized she is not sure she wants to give that up forever. Client reported she would like to get a medical marijuana card, but stated she will first talk to a doctor to see if that would be okay based on her history. Client receptive to psychoeducation about proper belly breathing to decrease anxiety. Risks/Concerns:: Denies suicidal/homicidal ideation, plan or intention to date. future focused. daughter identified as her protective factor. Progress Toward Goals/Plan:: Treatment progress noted with client continue to report improved mood with decreased depression, anxiety, and starting to manage anger better. Client did talk a little about what led to her inpatient hospitalization which is something she had avoided in previous sessions. Barrier to treatment could be client's little insight or communication about areas she struggles in with her mental health. Client to continue IOP to maintain gains, increase healthy coping and prevent decompensation. Time Stopped:: 11:20
--- NOTE | 2022-01-17 09:00 | BH.SGPN.GN ---
Behaviors/Verbalizations/Mental Status: []Eye contact intense at times-staring. Motor activity is appropriate. Appearance is casual. Speech is Appropriate. Mood is anxious. Affect is flat. Thoughts are linear and logical. No evidence of psychosis. Reviewed daily check in sheet and no reports of suicidal ideations or intent. Client Response/Progress/Benefit: [] Pt responded well to session, quiet but participating when prompted. Pt reports feeling tired this morning as pt was up late finishing school work. Pt's win today is that she completed all her college work on time and has been able to do this more consistently. Pt also worked on setting up different appointments which will reduce stress later. Pt's ongoing stressors include car issues and missing her daughter. Pt is working on getting her daughter back and has been following through will all recommendations. Pt appeared to benefit from reflecting on her resilience. Pt will continue IOP tx to increase distress tolerance, improve mood stability, and improve daily functioning. Narrative Note: []
--- NOTE | 2022-01-17 10:05 | BH.SGPN.GN ---
Behaviors/Verbalizations/Mental Status: [] Eye contact is good. Motor activity is appropriate. Appearance is casual. Speech is Appropriate. Mood is euthymic. Affect is flat. Thoughts are linear and logical. No evidence of psychosis. Client Response/Progress/Benefit: [] Pt was an active participant in group discussion. Attentive during psychoeducation on cognitive distortions, the CBT triangle, and automatic thoughts. This group was very information heavy as therapist introduced 10 common cognitive distortions which included; All or Nothing Thinking, Overgeneralization, Mental Filter, Disqualifying the Positives, Jumping to Conclusions, Emotional Reasoning, Labeling, Catastrophizing, Shoulds/Musts, and Personalization. Pt along with peers did contribute examples of each distortion. Benefited from increased knowledge and insight into cognitive distortions and how they can impact mental health. Will continue in IOP to prevent decompensation/re-admission to psych unit, increase healthy coping, provide support, and encourage medication compliance. Narrative Note: []
--- NOTE | 2022-01-22 09:05 | BH.SGPN.GN ---
Behaviors/Verbalizations/Mental Status: [] Eye contact is good. Motor activity is appropriate. Appearance is casual. Speech is Appropriate. Mood is euthymic. Affect is full. Thoughts are linear and logical. No evidence of psychosis. Reviewed daily check in sheet and no reports of suicidal ideations or intent. Client Response/Progress/Benefit: [] Pt participated when prompted. Attentive. Daily symptom tracker notes 06/07 for depression and anxiety. Mental health wins include managing her emotions over the weekend. She completed her classes for the which is good and bad as now she has more free time for herself. Shared that she struggles with extra free-time because that's when I start thinking too much. Believes that she is coping with her emotions better talking specifically about her anger. Shared examples of implementing anger mgmt skills over certain stressors this weekend. Had a virtual chat with a friend last night which she stated was beneficial. She did drank 5 beers however states alcohol was never an issues for me and reports it was social. Continues to be open with group that her daughter is in the custody of children services and she hopes to get an in-person visit with her sometime this week. Benefited from group support, encouragement, and feedback. Will continue in IOP to maintain stability, encourage medication compliance, and prevent decompensation. Narrative Note: []
--- NOTE | 2022-01-22 10:05 | BH.SGPN.GN ---
Behaviors/Verbalizations/Mental Status: []Pt alert and oriented, neatly dressed and groomed. Eye contact good. Motor activity appropriate. Speech within normal limits. Affect constricted, mood euthymic. Thoughts linear, logical, no signs of hallucinations or delusions. Client Response/Progress/Benefit: []Pt participated at times during the group discussion. Attentive during psychoeducation. Participated in experiential activity. Pt took notes during interactive discussion on the consequences of unhealthy expression of emotions.? Attentive while peers identified several consequences which included; pushing people away, ?exploding,? and losing relationships. Attentive during interactive discussion on common potholes to effectively communicating which included; shutting down, assuming, fear of judgement, and not knowing what to say. Pt reported personally struggling with understanding others perspective and feeling scattered impacting her ability to communicate. ?Pt was able to relate and make connections between the experiential activity and the overall topic. Benefited from increased awareness of how stress and emotions can impact one's ability to communicate. Will continue in IOP to increase emotional regulation skills, improve self-awareness, and improve daily functioning. ? Narrative Note: []
--- NOTE | 2022-01-22 11:05 | BH.SGPN.GN ---
Behaviors/Verbalizations/Mental Status: []Pt alert and oriented, neatly dressed and groomed. Eye contact stares. Motor activity appropriate. Speech within normal limits. Affect constricted, mood euthymic. Thoughts linear, logical, no signs of hallucinations or delusions. Client Response/Progress/Benefit: []Pt engaged in session AEB pt listening attentively to peers and providing input. Attentive during psychoeducation on 4 zones of regulation. Pt able to identify feelings and behaviors for each zone.? Pt identified coping skills one can use to support self in each zone. Pt stated belief that pt is in the green zone today as pt is feeling positive, motivated, and resilient. Pt shared it was confirmed that pt will see her daughter in person this week. Pt reports continuing to take her medications and following a sleep schedule will keep pt in the green zone today. Benefited from increased education on zones of regulation or stages of alertness for emotions and healthy coping skills to use for each zone. Pt will continue IOP tx to improve emotional regulation skills, increase self-care, and improve daily functioning. ?? Narrative Note: []
--- NOTE | 2022-01-23 09:00 | BH.SGPN.GN ---
Behaviors/Verbalizations/Mental Status: []Pt alert and oriented, casually dressed and groomed. Eye contact staring, motor activity appropriate. Mood anxious and sad. Affect constricted-tearful when talking about daughter. Speech within normal limits. Thoughts linear, logical, no signs of delusions or hallucinations. Reviewed pt's symptom tracker, no risk for SI plan or intent. Client Response/Progress/Benefit: [] Pt responded well to session, receptive to emotional support and ideas from peers. Pt was tearful and reports feeling stressed this morning as pt misses her daughter and states it is getting harder to cope with not having her. Pt admits to using unhealthy coping skills to manage her emotions as pt drank the past two nights. Pt also reports having cravings to relapse on meth and cocaine, but pt has not acted on those cravings. Pt received ideas and encouragement from peers who are also in recovery and managing cravings which pt appeared to benefit from. Pt is thinking of getting another job to help distract pt and give pt another source of income. Pt able to verbalize stressors and symptoms when this therapist is present, but pt struggles to identify symptoms to other IOP staff. Pt will continue IOP tx to promote mood stability, increase overall functioning, and improve emotional regulation skills. Narrative Note: []
--- NOTE | 2022-01-23 15:16 | BH.MDN_ITS ---
Multi-Disciplinary Note - Note 30-min Individual Date: 01/23/22 Purpose of session/treatment goals addressed:: Purpose of session was to address goals 1 and 2 from MTP. Eye Contact:: Fair Motor Activity:: Appropriate Appearance:: Disheveled Speech:: Appropriate Mood:: Euthymic, Dysthymic Affect:: Constricted Thoughts:: Linear, Logical, No evidence of hallucinations/delusions noted Staff Interventions:: thought challenging, motivational interviewing, CBT techniques, strengths perspective, reviewed DSM-5 Client Response:: Client reported she has been stressed about not having her daughter. Client stated she drank on Saturday because she was sad about not having her daughter and bored. Client reported she also drank alcohol Saturday evening because she was bored. Client initially didn't connect that drinking alcohol as a way to cope could be considered unhealthy. Client reported she can't do a lot because doesn't have money so has to be home a lot thinking about not having her daughter. Client stated she is thinking about getting a second robyn b to increase income and give her more to do. Client reported he has been having harder time with managing free time since she is off school until mid-February. Reviewed DSM 5 scores at mid-point in IOP. Client scores have decreased significantly. Therapist did inquire about client scoring her anxiety as a 0 out of 12, with 0 meaning none, when she talks often about being nervous about not having custody of daughter right now. Client continues to report a 2/8 for depression when she stated in first group today she couldn't identify any wins. Client stated the scores she put down are accurate to her symptoms. Client stated in addition to feeling less depressed and less anxious since starting IOP she also is feeling less angry. Client reported she uses the grounding tool she learned in treatment here which helps bring her back to the here and now. Client stated she hasn't felt the urge to break anything or punch any holes in her wall in the last two weeks. Discussed client's constant feelings of loneliness which client stated the only solution is adding a second job to give her more to do. Client stated she there are things she could do to decrease isolation but at this time she can't afford to go to fun things because of needing gas money to get to work and therapy. Client stated she did get sidewalk chalk and would like to start drawing, which is something she has enjoyed in the past. Risks/Concerns:: Denies suicidal/homicidal ideation, plan or intention to date. future focused. Progress Toward Goals/Plan:: Progress noted per client's report and decrease in scores on the DSM 5 for her mid-point review. Client did report increase in alcohol use as a way to cope with boredom and sadness. Discussed ways to decrease boredom but client stated doing things she enjoys as not an option because of her financial situation. Client is considered a second job to increase income and decrease isolation. Client is to continue IOP to maintain gains, continue use of healthy coping and prevent decompensation.
--- NOTE | 2022-01-24 09:00 | BH.SGPN.GN ---
Behaviors/Verbalizations/Mental Status: [] Eye contact is good. Motor activity is appropriate. Appearance is casual. Speech is Appropriate. Mood is euthymic. Affect is full. Thoughts are linear and logical. No evidence of psychosis. Client Response/Progress/Benefit: [] Pt participated at times during the group discussion. Attentive. Emotion for today is ?happy?. Mental health win was ?I managed my stress and urges yesterday?. Pt reports that she is battling boredom which has increased her urge to drink alcohol. She denies that she drinks to excess, blacking out, or has any withdrawal symptoms. Reports she drinks 1-2 drinks a night. Increased boredom due to being on break from college. She is thinking about picking up a second job to help combat free time and urges to drink. She reports that she is implementing skills on a consistent basis, is medication compliant, and denies any significant distress. Progress noted per pt report. Benefited from group support, encouragement, and feedback. Will continue in IOP to prevent decompensation, provide support, and increase healthy coping skills Narrative Note: []
--- NOTE | 2022-01-24 10:10 | BH.SGPN.GN ---
Behaviors/Verbalizations/Mental Status: []Pt alert and oriented, casually dressed and groomed. Eye contact good. Motor activity appropriate. Speech within normal limits. Affect constricted, mood content. Thoughts linear, logical, no signs of hallucinations or delusions. Client Response/Progress/Benefit: []Pt was a passive?participant in group discussion, but took notes. Group worked together to identify benefits of healthy relationships which include; improves mental health, encouragement, motivation, accountability, validation, connection, someone to share experiences with, and personal growth. Group identified factors that lead to unhealthy relationships which included; co-dependence, gaslighting, not addressing issues, name-calling, and doing only what others want.?Pt taking notes but quiet throughout session.?Actively participated in group experiential activity and expressed ideas to group. Benefited from increased insight and awareness of benefits of healthy relationships and factors that contribute to unhealthy relationships. Pt?s engagement in group continues to be passive, but pt takes notes consistently. Will continue in IOP tx to increase distress tolerance, increase the use of healthy coping skills, and improve functioning.? Narrative Note: []
--- NOTE | 2022-01-24 11:45 | PCM.BH.PN ---
Progress Note Progress Note: History of Present Illness/Interim History: [] The patient is a 31-year-old single female with a history of recent psychosis in November 2021 who is seen in follow-up at the [facility] behavioral health IOP program. I last saw the patient 3 weeks ago and at that time no medication changes were made. She states she has been compliant with her medications. The patient feels she is improving but has quite limited insight and is attending the program regularly but continues to deny any symptoms at the time of her admission in November and denies any symptoms currently. She states that she is still a little down but only because she misses her daughter. She denies any other psychiatric symptoms. She denies passive thoughts of , suicidal ideation, homicidal ideation, hallucinations or delusions ever. The patient has somewhat difficulty recognizing normal social cues. Patient denies any drug use and no marijuana use and today states that she only used marijuana 3 or 4 days before her admission in November 2021 which resulted in her losing custody of her 2-year-old daughter. Current Psychiatric Medications: [] Abilify 7.5 mg p.o. daily (x7 weeks now); melatonin as needed. Mental Status Examination: [] Patient is a 31-year-old female who appears normal for stated age and is casually dressed and groomed and appears mildly disheveled. She is ambulatory with a normal gait and has no psychomotor agitation or retardation. She is cooperative during the interview. Eye contact is good and speech is normal rate and rhythm and fluent with no pressure. Mood is mildly depressed to euthymic. Affect is constricted and patient seems mildly guarded. Thought process is goal-directed and organized. Thought content: The patient does not really reveal her thoughts. There is no evidence of passive thoughts of , suicidal ideation, ideation, hallucinations or delusions. Reality testing is intact. Intelligence is average or above. Judgment is intact. Insight is quite limited. Diagnoses: [] 1. Bipolar 1 disorder, most recent episode depression with psychosis versus history of recent psychosis secondary to marijuana use #2 anxiety disorder, NOS ;#3 PTSD; #4 marijuana use disorder, sober x7 weeks; #5 history of methamphetamine and cocaine use disorder, sober for 4-1/2 years; primary support and legal issues Plan: [] The patient will continue the IOP program at [facility] as the support, education, structure and group therapy will hopefully prevent worsening of the patient's symptoms which might require hospitalization. The patient felt safe during the interview and if it anytime she does not feel safe she will let us know or go to the emergency room. The patient will continue to remain sober from all drug use. No medication changes were made today as the patient says she is doing well. It is difficult to make an accurate diagnosis and difficult to ascertain if the patient is participating only in order to try to get her 2-year-old daughter back. The patient is not opening up to myself or staff. She will continue to follow-up with outpatient providers and I will see the patient in follow-up while she is in the IOP program.
--- NOTE | 2022-01-24 13:42 | BH.MTP_ITS ---
Treatment Plan Review Date of Admission:: 01/01/22 Date of Treatment Plan Review:: 01/24/22 Admitting Diagnoses:: 1. Rule out history of recent psychosis secondary to marijuana use. 2. F31.5 Bipolar 1 disorder versus schizoaffective disorder. 3. Anxiety disorder NOS. 4. PTSD. 5. Marijuana use disorder, sober x1 month. 6. History of meth amphetamine and cocaine use disorder, sober x4-1/2 years Current Diagnoses:: F31.5 Bipolar 1 disorder, most recent episode depression with psychosis versus history of recent psychosis secondary to marijuana use. #2 anxiety disorder, NOS. #3 PTSD. #4 marijuana use disorder, sober x7 weeks. #5 history of methamphetamine and cocaine use disorder, sober for 4-1/2 years Patient's Response to Treatment:: Pt consistently attends IOP. Pt is attentive during group and taking notes. Verbal contributions are limited. Pt seems to be guarded in individual therapy AEB providing limited information and difficulty identifying symptoms. Status of Current Problems and Symptoms: Pt reports minimal symptoms currently. Pt states mood is improved, decrease in anger, denies delusions or hallucinations and is better at managing her emotions. Pt recently reported using alcohol on two occasions to cope with feeling bored or sad. Pt reports still anxious about daughter being in foster care. Pt was admitted to inpatient psychiatric admission prior to coming to IOP she will continue IOP to prevent decompensation and help transition back to lower level of care. Problem #1 Problem Name:: Depression Status of Goals:: Obj 1- partially met, ongoing work encouraged. Client able to identify healthy coping skills like opposite action, challenging negative thoughts, and challenging environment. Client struggles with using healthy coping skills on a consistent basis. Obj 2 - objective not met. Client's depression at intake was a 2/5 and at review it has maintained a 2/5. Team Recommendations:: Team recommends revisiting skills to help decrease use of alcohol as a form of coping. Continue to discuss options to increase social support and socialization. Problem #2 Problem Name:: Anxiety Status of Goals:: Obj 1 - goal met. Client able to identify calming skills like utilizing her 5 senses, belly breathing, and mindfulness. Client reports d ecrease in anxious symptoms and ability to manage anger more effectively. Obj 2 - goal met. Per client's DSM 5 at intake her anxiety has decreased by 100%. Client does report in first group she is still anxious about not having custody of her daughter. Team Recommendations:: Team recommends to continue current goals and objectives to maintain gains, be consistent with use of healthy coping skills, and prevent decompensation.
--- NOTE | 2022-01-29 09:05 | BH.SGPN.GN ---
Behaviors/Verbalizations/Mental Status: [] Eye contact is good. Motor activity is appropriate. Appearance is casual. Speech is Appropriate. Mood is euthymic. Affect is full. Thoughts are linear and logical. No evidence of psychosis. Reviewed daily check in sheet and no reports of suicidal ideations or intent. Client Response/Progress/Benefit: [] Pt participated at times during the group discussion. Attentive. Daily symptom tracker notes no distress. She reports that she ?kept herself busy? all weekend. She is currently working 2 jobs to decrease her boredom which can lead to ?too much time with my thoughts?. States that she ?misses? college? 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 She is excited as she has been working with the [facility] to get in-person visits with her daughter. She hopes to have these soon. She is optimistic. Medication compliant. Progress noted per pt report. Benefited from group support, encouragement, and feedback. Will continue in IOP to prevent decompensation/re-admission, stabilize mood, and increase healthy coping. Narrative Note: []
--- NOTE | 2022-01-29 10:10 | BH.SGPN.GN ---
Behaviors/Verbalizations/Mental Status: []Pt alert and oriented, neatly dressed and groomed. Eye contact good. Motor activity appropriate. Speech within normal limits. Affect constricted, mood anxious. Thoughts linear, logical, no signs of hallucinations or delusions. Client Response/Progress/Benefit: []Pt was a mostly passive participant in group discussions and activity. Attentive during psychoeducation. Pt along with peers were able to identify several negatives on the picture given to the group. Pt and peers also identified positives in the picture and made the connect that finding positives is much more difficult. Interactive discussion on the definition of perspective, how perspective is formed, and why perspective is important in treatment. Pt along with peers also identified that perspective can either motivate and encourage treatment or be a barrier to receiving help. Pt shared having a goal and reason why she is in treatment helped shape her perspective on getting help. Will continue in IOP to promote mood stability, increase emotional regulation skills, and further improve functioning. Narrative Note: []
--- NOTE | 2022-01-29 11:10 | BH.SGPN.GN ---
Behaviors/Verbalizations/Mental Status: []Pt alert and oriented, neatly dressed and groomed. Eye contact good. Motor activity appropriate. Speech within normal limits. Affect constricted, mood anxious. Thoughts linear, logical, no signs of hallucinations or delusions. Client Response/Progress/Benefit: []Pt was attentive and contributed in small and larger group discussion. Pt completed strengths exploration worksheet and identified personal strengths to include: persistence, bravery, love of learning, honesty, and independence. Pt able to acknowledge how these strengths are helping her and can continue to help pt in her mental health journey. Pt shared that working to recognize these personal strengths more consistently will help improve pt?s mood and increase self-worth. Shared wanting to focus on fostering personal strengths by focusing on her persistence and motivation to get her daughter back. Benefited from identifying personal strengths and strategies for enhancing use of identified strengths. Pt to continue IOP tx to increase mood stability, utilize emotional regulation skills, and promote gains. Narrative Note: []
--- NOTE | 2022-01-30 10:50 | BH.SGPN.GN ---
Behaviors/Verbalizations/Mental Status: [] Client alert and oriented, casually dressed and groomed. Eye contact good. Motor activity appropriate. Speech within normal limits. Affect congruent, mood euthymic. Thoughts linear, logical, no signs of hallucinations or delusions. Client Response/Progress/Benefit: [] Client responded well to session, contributing to discussion and engaged during the activity. Group identified the benefits of change which included: personal growth, improving mental health, experiencing more, and better relationships. Worked with the group to identify barriers to change, which included: uncomfortable emotions such as anxiety and depression, lack of motivation, lack of energy, and confidence. Client participated along with group in activity where they identified and discussed the emotions related to change. Client participated in discussion on the change process and personal experiences with implementing change in past. Benefited from increased awareness and understanding of emotions, benefits, and barriers related to change. Will continue IOP tx to continue to combat distortions that reinforce low self-esteem, anxiety, and depression and prevent decompensation. Narrative Note: []
--- NOTE | 2022-01-30 11:00 | BH.SGPN.GN ---
Behaviors/Verbalizations/Mental Status: [] Client alert and oriented, casually dressed and groomed. Eye contact good. Motor activity appropriate. Speech within normal limits. Affect congruent, mood euthymic. Thoughts linear, logical, no signs of hallucinations or delusions. Client Response/Progress/Benefit: [] Client responded well to session, attentive AEB participating in activity and providing input in group. Did well to process activity and work with group to relate the strategies used to overcome barriers in the activity to managing change in own life. Client shared a change they would like to make is be more social. Client stated currently reports being in the contemplation stage. Identified goal to work on to achieve change behavior would be starting conversations with others and new people. Appeared to benefit from identifying a small goal to work towards. Client will continue IOP tx to prevent decompensation, gain healthy coping skills, and improve daily functioning. Narrative Note: []
--- NOTE | 2022-01-30 15:01 | BH.MDN ---
Multi-Disciplinary Note - Note 45-min Individual Time Started:: 09:01 Date: 01/30/22 Purpose of session/treatment goals addressed:: Purpose of session as to address goals 1 and 2 from MTP. Eye Contact:: Good Motor Activity:: Appropriate Appearance:: Casual Speech:: Appropriate Mood:: Euthymic, Other - sad when talking about negative past traumas Affect:: Congruent Thoughts:: Linear, Logical, No evidence of hallucinations/delusions noted Staff Interventions:: thought challenging, CBT techniques, discharge planning, strengths perspective, other - reviewed healthy coping skills Client Response:: Client reported she is feeling nervous because she will get to see her daughter for a in person visitation either this week or next week. Client shared she is worried her daughter won't want to go to her since she hasn't seen her daughter in person since end of November 2021. With help from therapist client able to challenge anxious thoughts by reminding self her daughter has responded well each week when has visitations every . Client reported she is excited to see her daughter in person but anxious because is is unknown how her daughter will respond. Client shared she is able to have in person visitation since her apartment no longer is infested with cockroaches. Discussion about no longer having cockroaches did lead client to talk about her childhood experiences. Client shared how child services has been involved in and out of her life since she was a young child. Client stated when she was in foster care for a year she had moved 14 times. Client reported since she in middle school until she was 19 years old she had moved over 40 times. Client able to connect how constantly moving made it hard for her to make friends and had little stability. Client able to identify impact things in her childhood still impact her today. Client reported as an adult she does have a hard time making friends because she struggles with small talk so she won't initiate conversations. Client reported she is worried she will say something that upsets the other person so usually doesn't talk unless someone else talks to her. Therapist helped client connect how it will be difficult to increase social support if she doesn't initiate discussion with others. 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 Client stated she will work the second job a couple of times a week in the evening. Client stated she thinks this will help decrease her boredom which will decrease her urge to drink alcohol. 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 Client stated she was able to manage the long work hours without feeling overwhelmed. Stated her second job is pretty easy. Client agreed with therapist if she had this schedule everyday it would be too much, especially when school starts back up next week. Client stated she believes it will do doable since it will be only a couple times a week when she has to do school work plus work both jobs. Client reported she feels like her depressed symptoms are continuing to decline. Client stated anxiety is a little increased due to seeing her daughter in person soon and not knowing when she will get custody of her daughter back. Client agreed she would be ready for discharge in two weeks if she continues to report her symptoms are declining and functioning is improved. Risks/Concerns:: Denies suicidal ideation, plan or intention to date. future focused. Progress Toward Goals/Plan:: Progress noted with client reporting no more use of alcohol as a way to cope with boredom or sadness since last individual session. Client was able to get hired for a second job and was able to manage a busy day without having significant anxiety or feeling overwhelmed. Client continues to report mood stability. Reported slight increase in anxiety due to stressor of daughter being in foster care. Discussed discharge in two weeks and client agreed with plan. Client to continue [facility] to maintain gains, continue use of healthy coping and prevent decompensation. Time Stopped:: 09:45
--- NOTE | 2022-01-31 09:05 | BH.SGPN.GN ---
Behaviors/Verbalizations/Mental Status: []Pt alert and oriented, neatly dressed and groomed. Stares. Motor activity appropriate. Speech within normal limits. Affect constricted, mood anxious. Thoughts linear, logical, no signs of hallucinations or delusions. Reviewed pt?s symptom tracker, no risk for suicidal ideation, plan, or intent as of 01/31/22 Client Response/Progress/Benefit: [] Pt responded well to session, attentive and engaged. Pt reports feeling stressed this morning which is triggered by pt's anxiety about school and ongoing report of urges to drink. Pt reports she was able to refrain from drinking last night and focused on school work instead which required a lot of self-control. Pt reports her urges to drink have increased due to missing her daughter and anxiety. Group helped pt remind herself the reasons why she is not drinking. Pt appeared to benefit from reflecting on the reasons she is sober as well as reviewing additional supports. Pt will continue IOP tx to promote the use of healthy coping skills and improve distress tolerance skills. Narrative Note: []
--- NOTE | 2022-01-31 10:10 | BH.SGPN.GN ---
Behaviors/Verbalizations/Mental Status: [] Eye contact is good. Motor activity is appropriate. Appearance is casual. Speech is Appropriate. Mood is euthymic. Affect is flat. Thoughts are linear and logical. No evidence of psychosis. Client Response/Progress/Benefit: [] Pt was a active participant in group discussions. Attentive during psychoeducation. Along with peers pt participated in interactive discussions in which group defined self-care, discussed the benefits to self-care, and identified common myths surrounding self-care which included; self-care is selfish, self-care is self-indulgent, self-care is just personal hygiene, self-care should be fun, self-care is too time consuming, I don?t deserve it, self-care means I?m not being productive. Pt and peers broke into smaller group and worked together to bust the myths associated with self-care. Benefited from increased awareness of the self-care and its benefits. Will continue in IOP to maintain safety, prevent decompensation, increase healthy coping, and improve functioning. Narrative Note: []
--- NOTE | 2022-02-12 15:38 | BH.MDN ---
Multi-Disciplinary Note - Note 30-min Individual Time Started:: 12:02 Date: 02/12/22 Purpose of session/treatment goals addressed:: Purpose of session was to identify treatment progress, identify strategies to help maintain progress and solidify aftercare plans. Eye Contact:: Fair Motor Activity:: Appropriate Appearance:: Other - client was dressed neatly and wearing a blonde wig. This is not the first time she has worn a wig to treatment. States she wears it to increase confidence. Speech:: Appropriate Mood:: Anxious Affect:: Congruent Thoughts:: Linear, Logical, No evidence of hallucinations/delusions noted Staff Interventions:: thought challenging, CBT techniques, discharge planning, strengths perspective, other - discussed plan to decrease alcohol use. Client Response:: Client stated this weekend she drank Saturday and Saturday evening. Client reported she did not get drunk but recognizes it is starting to become a issue. Client stated she does not want to use alcohol as a way of coping with boredom and sadness. Client reported she is thinking about going to AA meetings to help with staying sober. Client discussed with therapist consequences of continued alcohol use which included money issues and risk not getting daughter back. Client stated a strategy that worked win the past when was getting sober from other drugs she would keep her money out of sight. Client stated she will keep her purse on top of the fridge so she doesn't see it and be enticed to go buy alcohol. Therapist encouraged client to dump any alcohol she might have in her apartment. Client agreeable with strategies stating she doesn't think she has an alcohol problem but doesn't want to risk making poor choices and jeopardizing her upcoming court case to get her daughter back. Client stated she is starting to feel more anxious and stressed with the upcoming court case. Reviewed healthy coping skills client can utilize to cope with added stress. Client stated she can note treatment progress within herself since starting IOP. Client stated her depressed symptoms have been gone for several weeks. Client reported she believes her moods have been more stable. Client reported she has been using breathing skills and grounding tools to manage anxious symptoms. Client stated she believes being done with IOP tomorrow will be helpful because it will give her more time to engage in self-care and complete her school work. Risks/Concerns:: Denies suicidal ideation, plan or intention to date. future focused. Progress Toward Goals/Plan:: Progress noted AEB client reporting mood stability, no recent depressed symptoms, and using healthy skills to manage anxiety at times. Client states she hasn't had an anger outburst in several weeks and hasn't broken anything when angry. Client does report increased use of alcohol on the weekends as a way to manage sadness and boredom. Client recognizes this could be a problem if she doesn't stop this way of coping now. Client worked with therapist to develop plan to help with refraining from using alcohol. Plan is for client to discharge from [facility] tomorrow. Client is established at the counseling center for psychiatry and counseling. Client does not know her appointment dates but agreed to call and find out to let staff know tomorrow. Time Stopped:: 12:25
== END 2022-01-31 23:59 ==
LOC: BHIOP 08:00
PROVIDERS: PCP Internal Medicine; Referring Provider Psychiatry & Neurology Psychiatry; Visit Provider Psychiatry & Neurology Psychiatry
DX: F31.89 Other bipolar disorder (principal); F41.8 Other specified anxiety disorders; F43.10 Post-traumatic stress disorder, unspecified; F12.99 Cannabis use, unspecified with unspecified cannabis-induced disorder; Z79.899 Other long term (current) drug therapy
CPT/HCPCS: 90792; 99214; H2012; H2020; S9480; T1002; 90832; 90834

== ENCOUNTER 2022-02-01 07:41 | Outpatient (RCR) | payer MEDICAID, SELFPAY ==
[2022-02-01 00:41] VITALS: BP 123/75; PULSE 73
--- NOTE | 2022-02-06 10:05 | BH.SGPN.GN ---
Behaviors/Verbalizations/Mental Status: [] Client alert and oriented, neatly dressed and groomed. Eye contact good. Motor activity appropriate. Speech within normal limits. Affect constricted, mood euthymic. Thoughts linear, logical, no signs of hallucinations or delusions. Client Response/Progress/Benefit: [] Narrative Note: []
--- NOTE | 2022-02-06 11:05 | BH.SGPN.GN ---
Behaviors/Verbalizations/Mental Status: [] Client alert and oriented, neatly dressed and groomed. Eye contact good. Motor activity appropriate. Speech within normal limits. Affect congruent, mood depressed. Thoughts linear, logical, no signs of hallucinations or delusions. Client Response/Progress/Benefit: [] Client engaged in session AEB contributing to discussion and engaging in activity. Client did well to review current conflict style and its impact on mental health. Attentive during discussion on strategies for more effectively managing conflict in personal life. Client participated in activity and did well to be assertive and collaborating. Client given handout on fair fighting rules. Client indicated that she was going to express feelings with words and utilize I statements. Client identified tearfully that growing up she did not learn how to express herself so she is trying to incorporate that in her life today. Appeared to benefit from gaining strategies to help client better manage conflict. Will continue IOP tx to reduce negative thinking patterns, utilize positive coping, and prevent decompensation. Narrative Note: []
--- NOTE | 2022-02-08 09:05 | BH.SGPN.GN ---
Behaviors/Verbalizations/Mental Status: [] Client alert and oriented, casually dressed and groomed. Eye contact good. Motor activity appropriate. Speech within normal limits. Affect constricted, mood anxious. Thoughts linear, logical, no signs of hallucinations or delusions. Reviewed client?s symptom tracker, no risk for suicidal ideation, plan, or intent as of 02/08/22 Client Response/Progress/Benefit: [ ] Client responded well to group by being attentive and participating in group and providing input to other group members. Reported that her emotion was anxious. Client reported that she was going to see her daughter today for the first time in months and is nervous that she won't recognize her. Client shared accomplishments of drinking less and putting her needs first with quitting second job. Client seemed to benefit from validation from other group members. She will continue IOP tx to decrease cognitive distortions, reduced irritability, and prevent decompensation. Narrative Note: []
--- NOTE | 2022-02-08 10:10 | BH.SGPN.GN ---
Behaviors/Verbalizations/Mental Status: [ ] Client alert and oriented, casually dressed and groomed. Eye contact good. Motor activity appropriate. Speech within normal limits. Affect congruent, mood euthymic and anxious, Thoughts linear, logical, no signs of hallucinations or delusions. Client Response/Progress/Benefit: [] Client responded well to session, contributing to discussion and engaged during the activity. Attentive during discussion on the quote with indicating that having few supports has been a barrier from change in her life. Group identified the things that keep them stuck and prevent taking action that included: lack of supports, relying on other's opinions of us, and fear of failure. Client identified things she want's to get rid of and take control in her life are need for validation, poor boundaries, and lack of communication. Client shared that if these things were gone she would be emotionally healthy. Client reported she started changes so far by communicating more. Benefited from increased awareness and understanding of emotions, benefits, and barriers related to change. Will continue IOP tx to continue to combat distortions that reinforce low self-esteem, anxiety, and depression.. Narrative Note: []
--- NOTE | 2022-02-08 11:10 | BH.SGPN.GN ---
Behaviors/Verbalizations/Mental Status: []Pt alert and oriented, casually dressed and groomed. Eye contact good. Motor activity appropriate. Speech within normal limits. Affect constricted, mood anxious. Thoughts linear, logical, no signs of hallucinations or delusions. Client Response/Progress/Benefit: []Pt was an active participant in group discussion. Attentive during psychoeducation on the Zones of Change which included the comfort zone, learning zone, and danger zone. Pt along with peers participated in interactive discussion regarding behaviors, thoughts, and feelings associated with each zone. Participated in group activity in which they developed a plan to take action on something they wished to change. Pt chose to take action on improving communication in which she identified a SMART goal to express my feelings with words every week with family and friends.? Identified supports that pt needed as support from her brothers. Benefited from increased self-aware of zones of change and developing an action plan. Will continue in IOP to improve mood stability, further improve daily functioning, and decrease use of unhealthy coping skills. Narrative Note: []
--- NOTE | 2022-02-09 09:05 | BH.SGPN.GN ---
Behaviors/Verbalizations/Mental Status: [] Eye contact is good. Motor activity is appropriate. Appearance is casual. Speech is Appropriate. Mood is euthymic. Affect is congruent. Thoughts are linear and logical. No evidence of psychosis. Reviewed daily check in sheet and no reports of suicidal ideations or intent. Client Response/Progress/Benefit: [] Pt participated at times during the group discussion. Attentive. Daily symptom tracker notes no mental health distress. Emotion for today is ?neutral?. Shared that she saw her daughter in-person yesterday which was very beneficial to her mental health. She talked at length regarding this as this has been a very important event, she has been looking forward too. Most of her check-in was superficial and about what she did over the weekend. Progress noted. Benefited from group support, encouragement, and feedback. Will continue in IOP to maintain gains, stabilize mood, and prevent decompensation/re-admission. Narrative Note: []
--- NOTE | 2022-02-09 11:10 | BH.SGPN.GN ---
Behaviors/Verbalizations/Mental Status: []Pt alert and oriented, neatly dressed and groomed. Eye contact good. Motor activity appropriate. Speech within normal limits. Affect constricted, mood anxious. Thoughts linear, logical, no signs of hallucinations or delusions. Client Response/Progress/Benefit: []Pt receptive of session, engaged throughout AEB pt actively listening and contributing to discussion, as well as taking notes.? Pt participated in the experiential activity and did well to communicate ideas with peers and manage emotions. Pt identified she felt frustrated and anxious, but she practiced using calming skills and assertive communication to cope. Pt and group processed how the emotions and perspective of the group impacted the activity. Group worked together to identify different coping skills to help manage pitfalls. Pt identified pitfalls they struggle with such as wanting to quit when emotionally ?overloaded? and waiting for external changes. ?Pt plans to work on these pitfalls by setting at least one intention a day. Benefited from identifying personal pitfalls and strategies to overcome these pitfalls. Will continue IOP tx to reinforce healthy coping skills and further increase mood stability. Narrative Note: []
--- NOTE | 2022-02-12 09:00 | BH.SGPN.GN ---
Behaviors/Verbalizations/Mental Status: []Pt alert and oriented, neatly dressed and groomed. Eye contact good. Motor activity appropriate. Speech within normal limits. Affect constricted, mood anxious. Thoughts linear, logical, no signs of hallucinations or delusions. Reviewed pt?s symptom tracker, no risk for suicidal ideation, plan, or intent as of 02/12/22 Client Response/Progress/Benefit: []Pt responded well to session, attentive and receptive to feedback. Pt reports feeling anxious this morning as pt has been drinking more heavily lately and is having a hard time controlling her use. Pt has been encouraged to in previous sessions to attend AA meetings and pt is thinking of going to one this week. Pt reports drinking because she misses her daughter, but drinking could be a barrier to getting her daughter back. Pt reported that she completed her class work on time which was a positive and she continues to be motivated with school. Pt appeared to benefit from processing current stressors. Pt will continue IOP tx to prevent decompensation, however, pt's alcohol use is becoming increasingly problematic and pt may need AoD treatment. Narrative Note: []
--- NOTE | 2022-02-12 10:00 | BH.SGPN.GN ---
Behaviors/Verbalizations/Mental Status: [] Eye contact is good. Motor activity is appropriate. Appearance is casual. Speech is Appropriate. Mood is euthymic. Affect is full. Thoughts are linear and logical. No evidence of psychosis. Client Response/Progress/Benefit: [] Pt participated at times group discussions. Attentive during psychoeducation. Participated with peers in experiential activity. Attentive during interactive discussion in which peers worked together to define what coping skills are. Attentive as peers identified unhealthy coping skills which included; lashing out, hurting oneself, isolating, substance abuse, ignoring, sleeping to escape, and retail therapy. Psychoeducation on internal vs external coping skills. After experiential activity pt identified that she has limited external supports and unhealthy internal coping skills. Benefited from increased awareness and education the benefits of have both internal and external coping skills. Will continue to prevent decompensation and maintain gains. Narrative Note: []
--- NOTE | 2022-02-12 16:01 | BH.AFTERPLAN ---
Aftercare Plan - Demographics Treatment End Date:: 02/13/22 Psychiatrist:: Rachel Gant Psychiatrist Office #:: [phone] [facility] Therapist:: Marissa Eckert Therapist Phone #:: [phone] - Plan Details Progress/Aftercare Plan Details:: Progress has been demonstrated with reporting improved mood, increased use of healthy coping skills, and improved daily functioning. Reports significant decrease in anger AEB not throwing things and not feeling the intense anger like prior to IOP. At discharge DSM 5 scores indicate a 100% reduction in depressive symptoms, 67% decrease in anxiety, and a 50% overall decrease in mental health symptoms. Continuing to report anxiety about not having daughter home, but has been trying to cope by using breathing and grounding tools. It is recommended to continue outpatient psychiatry with [facility] and individual counseling with Negrita Clinton at the [facility]. Strategies for Success:: 1. Grounding tools - 5,4,3,2,1 skill of engaging your different senses can help decrease anxiety and bring you back to the here and now. 2. Increased engagement in self-care by doing things you enjoy and taking time for self. 3. Identifying daily wins and giving self credit for what you are doing! 4. Remember to look at good/bad moments versus good/bad days. 5. Taking medication consistently. 6. Refraining from using any alcohol or substances. 7. Asking for help when struggling. 8. Belly breathing. 9. Refer back to [facility] binder for refresh on healthy coping skills. - Appointments Appointments/Referrals to Other Services:: 1. [facility] at the counseling center for medication management. 2. Negrita Cilnton at the counseling center for individual counseling. - Medications Home Medications: Home Medications aripiprazole 5 mg tablet (Abilify) 7.5 mg PO DAILY 01/03/22
--- NOTE | 2022-02-15 09:05 | BH.SGPN.GN ---
Behaviors/Verbalizations/Mental Status: [] Eye contact is poor. Motor activity is appropriate. Appearance is casual. Speech is Appropriate. Mood is depressed. Affect is flat. Thoughts are linear and logical. No evidence of psychosis. Reviewed daily check in sheet and no reports of suicidal ideations or intent. Client Response/Progress/Benefit: [] Pt participated at times during the group discussion. Attentive. Daily symptom tracker notes 3/5 for depression and 2/5 for anxiety. Shared with the group that I've been struggling pretty hard. She elaborated that she is beginning to come to terms with the fact that her alcohol use is not OK. Insight and awareness that she needs help with remaining sober or not drinking when bored. She reports that she has not drank since Saturday and has plans to attend AA and get a substance abuse assessment at [facility] in . She is depressed as this is regression for her and she will most likely require a substance abuse IOP. She reports being stressed out however group provided positive feedback and praised her for admitting that she needs additional help. Treatment team met regarding pt prior to group as she had police called on her earlier this week due to being intoxicated. She was set to discharge from [facility] however she was referred for a SA assessment. She will remain in IOP for support till this assessment is complete. Narrative Note: []
--- NOTE | 2022-02-15 10:15 | BH.SGPN.GN ---
Behaviors/Verbalizations/Mental Status: []Pt alert and oriented, disheveled appearance. Eye contact good. Motor activity appropriate. Speech within normal limits. Affect constricted, mood depressed. Thoughts linear, logical, no signs of hallucinations or delusions. Client Response/Progress/Benefit: []Pt responded well to session AEB contributing to discussion, taking notes, and listening attentively to others. Group discussed the benefits of managed anger and anger as a secondary emotion. Pt shared perspective on negatives from acting out in anger as stress, going to alf, and having to replace things.? Pt completed anger iceberg worksheet, reporting outward personal signs of anger as breaking things and being aggressive.? Identified underlying emotions that contribute to anger including hurt, disappointment, and feeling overwhelmed. Appeared to benefit from increased knowledge of the underlying emotions that impact anger and increased self-awareness of the internal and external consequences of anger. Will continue IOP tx to prevent decompensation while pt finds an AoD IOP to begin. Narrative Note: []
--- NOTE | 2022-02-15 15:30 | BH.COMM ---
Communication Note - Communication with Client Communication Note: Client was supposed to discharge from IOP on 02/13/22, however client had not shown and when staff called she reported Saturday evening she drank alcohol, became intoxicated, and was arrested for disorderly conduct. Therapist met with client today to discuss plan for treatment. Client stated she had bought alcohol on Saturday evening because was sad she didn't have her daughter. Client reported she did get drunk and was listening to music outside. Client stated she didn't realize the music was too loud and someone called the police for a noise complaint. Client reported the officer was gong to give her a warning but when he went back to his car she accidently turned the music back on. Client stated he returned to her apartment and told her she was under arrest. Client reported she became combative and tried to resist arrest. Client stated she spent the night in nursing home Saturday and was charged with disorderly conduct and resisting arrest. Client reported feeling disappointed in herself because she should have made better choices. Client stated feeling anxious about potentially jeopardizing her custody case to get her daughter back. Therapist explained to client it appears she would benefit from discharging from IOP and being assessed by an alcohol and drug addiction IOP. Therapist explained per client's DSM 5 and self-report in the last few weeks she has been indicating to staff feeling mentally stable. Therapist stated it seems in the last two weeks she has started to revert to alcohol as her way of dealing with sadness and boredom. Despite plans/strategies developed in individual sessions and client reporting not wanting to drink alcohol she continues to do so, now with legal consequences. Therapist shared with client it seems the greatest concern is her alcohol use, especially with hx of meth addiction. Client agreed she has been reporting minimal mental health concerns. Client agreed an AOD IOP could be beneficial. Client stated she did not want to go back to [facility] becuase they turned me away in the past. Client agreeable to call [facility] together. Client has a intake appointment scheduled on Saturday02/19/22 at 10am. Client agreed to contact therapist after assessment informing therapist if she will be admitted to the addiction IOP. If client does not get admitted to the addiction IOP she will return to [facility] IOP. Therapist will not discharge client until hears back from her on Saturday afternoon.
--- NOTE | 2022-02-19 15:07 | BH.COMM ---
Communication Note - Communication with Client Communication Note: This automobile and property underwriter spoke with client via telephone. Client stated she had her assessment at [facility] and they agree it would be appropriate for her to start their AOD IOP. Client stated she has orientation at [facility] tomorrow. Client will be discharged from [facility] IOP today.
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
== END 2022-02-19 13:57 | disposition home or self-care (01) ==
LOC: BHIOP 07:41
PROVIDERS: PCP Internal Medicine; Referring Provider Psychiatry & Neurology Psychiatry; Visit Provider Psychiatry & Neurology Psychiatry
DX: F31.5 Bipolar disorder, current episode depressed, severe, with psychotic features (principal); F12.90 Cannabis use, unspecified, uncomplicated; F41.9 Anxiety disorder, unspecified; F43.10 Post-traumatic stress disorder, unspecified
CPT/HCPCS: H2020; S9480; 90832

== ENCOUNTER 2022-10-08 10:55 | Emergency (ER) | payer MEDICAID, SELFPAY ==
[2022-10-08 10:56] VITALS: BP 101/68; PULSE 78; RESP 16; TEMP 36.4; O2SAT 99; BMI 23.5
[2022-10-08] MEDS: 0.9% Normal Saline 1,000 ML 1000 ML IV (12:32)
[2022-10-08 12:37] LABS: Absolute Lymphocyte Count 2.45 X10^3/uL (0.83-4.51); Absolute Neutrophil Count 2.2 X10^3/uL (2.0-7.7); Basophil# 0.07 X10^3/uL; Basophil% 1.2 % (0-1); Eosinophil# 0.55 X10^3/uL; Eosinophils% 9.7 % (0-5); Hematocrit 41.2 % (37-47); Hemoglobin 13.7 g/dL (12.0-15.0); Lymphocyte # 2.45 X10^3/ul (0.83-4.51); Lymphocyte % 43.1 % (19-41); Mean Corp Hgb Conc 33.3 g/dL (32-36); Mean Corpuscular Hgb 31.5 pg (27.0-32.0); Mean Corpuscular Volume 94.7 fL (81-99); Monocyte# 0.39 X10^3/uL; Monocyte% 6.9 % (0-10); NRBC Flagged by Analyzer 0 % (0-5); Neutrophil # 2.22 X10^3/uL (2.7-7.7); Neutrophil % 38.9 % (47-70); Platelet Count 219 K/mm3 (150-450); RBC Distribution Width CV 11.9 % (11.6-14.6); RBC Distribution Width SD 41.7 fl (35.1-43.9); Red Blood Count 4.35 M/mm3 (4.2-5.4); White Blood Count 5.7 K/mm3 (4.4-11.0)
[2022-10-08 12:44] LABS: Mucous, Urine 0 SEEN /hpf (<or=2+); Red Blood Cells-Urine 0 SEEN /hpf (0-5)
[2022-10-08 12:46] LABS: Color, Urine Yellow (Yellow); Glucose, Dipstick Normal (Normal); Ketone-Dipstick Negative (Negative); Leukocyte Esterase-Dipstick 25 /ul (Negative); Nitrite-Dipstick Positive (Negative); Occult Blood-Urine Negative /ul (Negative); Protein-Dipstick Negative (Negative); Specific Gravity, Urine 1.005 (1.002-1.030); Urine Bilirubin Dipstick Negative (Negative); Urine Clarity Sl. Cloudy (Clear); Urine Urobilinogen Normal (Normal)
[2022-10-08 12:52] LABS: ALB/GLOB Ratio 1.2 RATIO (0.9-2.4); AST(SGOT) 13 U/L (15-37); Alanine Aminotransfer ALT/SGPT 18 U/L (13-56); Albumin, Serum 3.1 g/dL (3.2-5.0); Alkaline Phosphatase 56 U/L (45-117); Anion Gap 2 (5-15); BUN 7 mg/dL (7-18); BUN/Creat Ratio 8.2 RATIO (10-20); Calcium,Total 8.3 mg/dL (8.5-10.1); Chloride 113 mmol/L (98-107); Creatinine, Serum 0.85 mg/dL (0.55-1.02); EST Glomerular Filtration Rate 83 mL/min (>60); Est Glom Filt Rate - Afr Amer 100 mL/min (>60); Estimated Creatinine Clearance 100.22 ml/min; Globulin 2.6 g/dL (2.2-4.2); Glucose 89 mg/dL (74-106); Protein, Total 5.7 g/dL (6.4-8.2); Sodium Level 143 mmol/L (136-145)
[2022-10-08 12:54] LABS: Bacteria 2+ /hpf (None Seen); Squamous Epithelial Cells - UA 0-5 SEEN /hpf (5-10); White Blood Cells 0-5 SEEN /hpf (0-5)
[2022-10-08 12:56] VITALS: BP 99/64; PULSE 59; RESP 14; O2SAT 100
[2022-10-08 13:35] VITALS: BP 95/68; PULSE 68; RESP 14; O2SAT 100
[2022-10-08 13:51] VITALS: BP 100/64; BP 102/71; BP 106/75; PULSE 63; PULSE 65; PULSE 71
[2022-10-08 14:19] LABS: Internal QC Validated? YES +Cl - CLEAR BKGD; Pregnancy, Urine Negative Negative
--- NOTE | 2022-10-08 14:52 | EX.ED.DYSGE1 ---
HPI History of Present Illness Chief Complaint: Dizziness Informant: patient Onset/Context/Timing Onset: Days (3) Context: Sudden Onset Timing: Intermittent Quality: Lightheaded Location: Generalized Worsened by: Standing Relieved by: Rest Narrative Narrative: Patient presents with lightheadedness that has been constant for the past 3 days. Patient states she donated plasma 2 days ago. Patient states that after that she started feeling lightheaded and dizzy. Patient states it is worse with standing. Patient states it is better with rest. Patient states it comes and goes. Patient denies any headache. Patient states that sometimes when she stands up her vision goes dark but resolves after a few seconds. Patient denies any headaches. Patient denies any fevers or chills. Patient denies any chest pain or palpitations. [facility] Medical History (Updated 10/08/22 @ 15:[address] Marvin Schmitt DO) Anxiety disorder, unspecified Bipolar 1 disorder Cannabis use disorder History of cocaine use History of methamphetamine use History of psychosis PTSD (post-traumatic stress disorder) Home Medications aripiprazole 5 mg tablet (Abilify) 10 mg PO DAILY 01/03/22 [History Last Taken Unknown] escitalopram oxalate 5 mg tablet (Lexapro) 5 mg PO DAILY 10/08/22 [History Last Taken Unknown] Allergy/AdvReac Type Severity Reaction Status Date / Time latex Allergy Rash Verified 10/08/22 11:07 methylphenidate AdvReac Other Verified 10/08/22 11:07 [From Ritalin] sertraline [From Zoloft] AdvReac Other Verified 10/08/22 11:07 Surgical History (Updated 10/08/22 @ 15:[address] Marvin Schmitt DO) Hx of cervical polypectomy Social History Smoking Status: Current every day smoker tobacco type: cigarettes ROS ROS ED Constitutional Constitutional ED: Denies chills or fever(s) Eyes Eyes: Reports change in vision; Denies blurry vision or diplopia ENT ENT ED: Denies rhinorrhea or sore throat Cardiovascular Cardiovascular: Denies chest pain or palpitations Respiratory/Chest Respiratory/Chest: Denies cough or dyspnea Gastrointestinal Gastrointestinal: Denies nausea or vomiting Genitourinary Genitourinary ED: Denies dysuria or hematuria Musculoskeletal Musculoskeletal: Denies back pain or neck pain Integumentary Denies abscess or rash Neurologic Neurologic: Reports weakness; Denies headache(s) Allergic/Immunologic Allergic/Immunologic ED: Denies mouth swelling or urticaria EXAM Physical Exam Const Vital Signs: 10/08/22 10:56 10/08/22 10:56 10/08/22 12:56 Temperature 97.6 F L Temperature Source Temporal Pulse Rate 78 59 L Pulse Rate [Lying] Pulse Rate [Sitting (for 1 minute prior to obtaining)] Pulse Rate [Standing (for 1 minute prior to obtaining)] Respiratory Rate 16 14 Respiratory Effort Normal Non-Labored Respiratory Pattern Normal Blood Pressure 101/68 99/64 Blood Pressure [Lying] Blood Pressure [Sitting (for 1 minute prior to obtaining)] Blood Pressure [Standing (for 1 minute prior to obtaining)] Blood Pressure Mean 79 75 Blood Pressure Mean [Lying] Blood Pressure Mean [Sitting (for 1 minute prior to obtaining)] Blood Pressure Mean [Standing (for 1 minute prior to obtaining)] Pulse Ox 99 100 Oxygen Delivery Method Room Air Room Air 10/08/22 13:35 10/08/22 13:51 Temperature Temperature Source Pulse Rate 68 Pulse Rate [Lying] 71 Pulse Rate [Sitting (for 1 minute prior to obtaining)] 63 Pulse Rate [Standing (for 1 minute prior to obtaining)] 65 Respiratory Rate 14 Respiratory Effort Respiratory Pattern Blood Pressure 95/68 Blood Pressure [Lying] 100/64 Blood Pressure [Sitting (for 1 minute prior to obtaining)] 106/75 Blood Pressure [Standing (for 1 minute prior to obtaining)] 102/71 Blood Pressure Mean 77 Blood Pressure Mean [Lying] 76 Blood Pressure Mean [Sitting (for 1 minute prior to obtaining)] 85 Blood Pressure Mean [Standing (for 1 minute prior to obtaining)] 81 Pulse Ox 100 Oxygen Delivery Method Room Air Positive well nourished and well developed General Appearance ED: well developed HEENT Reports moist mucous membranes Neck supple and no JVD Resp normal respiratory effort and clear to auscultation bilaterally Cardio regular rate, regular rhythm and no murmurs GI normal to inspection, nondistended, normoactive bowel sounds and non-tender Palpation: soft Extremity normal to inspection General Extremety ED: Negative for edema or tenderness General Extremity: Negative for edema Neuro oriented x3, CN's II-XII intact bilaterally and no sensory deficits noted Sensorium / Orientation: alert Motor Exam: strength 5/5 throughout Psych mental status grossly normal Skin no rashes or lesions noted MDM MDM MDM Narrative Medical decision making narrative: Differential diagnosis includes dehydration, electrolyte abnormality, infection, anemia, COVID infection, influenza infection, and ectopic . CBC will be obtained to assess for leukocytosis and anemia. Comprehensive metabolic profile will be obtained to assess for hepatic function, renal function, and electrolyte abnormality. hCG will be obtained to assess for status. Urinalysis and urine culture will be obtained to assess for urinary tract infection. COVID-19 rapid antigen will be obtained to assess for COVID infection. Influenza A and influenza B antigens will be obtained to assess for influenza infection. Lab Data Attestation: I reviewed the patient's lab results. Lab results narrative: CBC was reviewed and was within normal limits. Comprehensive metabolic profile was reviewed and was within normal limits. Urine hCG was reviewed and was negative. Urinalysis was reviewed. Leukocyte esterase was 25 with positive nitrites. There were 0-5 white blood cells and 0-5 epithelial cells. There is 2+ bacteria. Labs: Laboratory Results - last 24 hr 10/08/22 10/08/22 10/08/22 12:25 12:25 12:25 WBC 5.7 RBC 4.35 Hgb 13.7 Hct 41.2 MCV 94.7 MCH 31.5 MCHC 33.3 RDW Std Deviation 41.7 RDW Coeff of Manpreet 11.9 Plt Count 219 MPV 9.0 Immature Gran % (Auto) 0.200 Neut % (Auto) 38.9 L Lymph % (Auto) 43.1 H [place] % (Auto) 6.9 Eos % (Auto) 9.7 H Baso % (Auto) 1.2 H Absolute Neuts (auto) 2.2 Absolute Lymphs (auto) 2.45 Nucleated RBC % 0 Sodium 143 Potassium 4.0 Chloride 113 H Carbon Dioxide 28.0 Anion Gap 2 L BUN 7 Creatinine 0.85 Estim Creat Clear Calc 100.22 Est GFR (MDRD) Af Amer 100 Est GFR (MDRD) Non-Af 83 BUN/Creatinine Ratio 8.2 L Glucose 89 Calcium 8.3 L Total Bilirubin 0.30 AST 13 L ALT 18 Alkaline Phosphatase 56 Total Protein 5.7 L Albumin 3.1 L Globulin 2.6 Albumin/Globulin Ratio 1.2 Serum , Qual Cancelled Urine Color Urine Clarity Urine pH Ur Specific [place] Urine Protein Urine Glucose (UA) Urine Ketones Urine Occult Blood Urine Nitrite Urine Bilirubin Urine Urobilinogen Ur Leukocyte Esterase Urine RBC Urine WBC Ur Squamous Epith Cells Urine Bacteria Urine Mucus Urine Test 10/08/22 12:39 WBC RBC Hgb Hct MCV MCH MCHC RDW Std Deviation RDW Coeff of Manpreet Plt Count MPV Immature Gran % (Auto) Neut % (Auto) Lymph % (Auto) [place] % (Auto) Eos % (Auto) Baso % (Auto) Absolute Neuts (auto) Absolute Lymphs (auto) Nucleated RBC % Sodium Potassium Chloride Carbon Dioxide Anion Gap BUN Creatinine Estim Creat Clear Calc Est GFR (MDRD) Af Amer Est GFR (MDRD) Non-Af BUN/Creatinine Ratio Glucose Calcium Total Bilirubin AST ALT Alkaline Phosphatase Total Protein Albumin Globulin Albumin/Globulin Ratio Serum , Qual Urine Color Yellow Urine Clarity Sl. Cloudy Urine pH 7.0 Ur Specific [place] 1.005 Urine Protein Negative Urine Glucose (UA) Normal Urine Ketones Negative Urine Occult Blood Negative Urine Nitrite Positive H Urine Bilirubin Negative Urine Urobilinogen Normal Ur Leukocyte Esterase 25 H Urine RBC 0 SEEN Urine WBC 0-5 SEEN Ur Squamous Epith Cells 0-5 SEEN Urine Bacteria 2+ Urine Mucus 0 SEEN Urine Test Negative Treatment and Re-Evaluation :: Patient was given IV fluids. Orthostatic vital signs were obtained and were negative. Patient was advised of her findings. Patient was instructed to drink plenty of fluids. Patient was instructed to follow-up with her primary care physician in 5 to 7 days. Patient understood and was agreeable with the plan. All questions were answered. Discharge Plan Triage Chief Complaint: Dizziness ED Provider: Marvin Schmitt Dx/Rx/DC Orders Clinical Impression: Positional lightheadedness Instructions: ED Dizziness, Uncertain Cause Prescriptions: No Action aripiprazole [Abilify] 5 mg Tablet 10 mg PO DAILY escitalopram oxalate [Lexapro] 5 mg Tablet 5 mg PO DAILY Primary Care Provider: Williams Cevallos Referrals: Williams Cevallos MD [Primary Care Provider] - 5-7 Days Disposition Disposition: Home, Self Care
[2022-10-08 15:04] VITALS: BP 97/67; PULSE 56; RESP 14; O2SAT 100
[2022-10-08 15:59] VITALS: BP 100/68; PULSE 60; RESP 16; O2SAT 99
== END 2022-10-08 16:04 | disposition home or self-care (01) ==
PROVIDERS: Emergency Provider Emergency Medicine; PCP Internal Medicine; Visit Provider Emergency Medicine
DX: R42 Dizziness and giddiness (principal); F31.9 Bipolar disorder, unspecified; F17.210 Nicotine dependence, cigarettes, uncomplicated; F41.9 Anxiety disorder, unspecified; Z79.899 Other long term (current) drug therapy
CPT/HCPCS: 81025; J3490; 85025; 87428; 80053; 81001; J7030; A4216

== ENCOUNTER 2022-10-08 21:14 | Emergency (ER) | payer MEDICAID, SELFPAY ==
[2022-10-08 21:15] VITALS: BP 108/69; PULSE 63; RESP 18; TEMP 35.8; O2SAT 100; BMI 23.7
[2022-10-08 21:43] LABS: Amphetamine Urine VISTA NEGATIVE (<1000 ng/mL); Barbiturate Urine VISTA NEGATIVE (< 200 ng/mL); Benzodiazepine Urine VISTA NEGATIVE (< 200 ng/mL); Cocaine Urine VISTA NEGATIVE (< 300 ng/mL); Ecstacy Urine VISTA NEGATIVE (< 500 ng/mL); Methadone Urine VISTA NEGATIVE (< 300 ng/mL); PCP Urine VISTA NEGATIVE (< 25 ng/mL); THC Urine VISTA NEGATIVE (< 50 ng/mL); Vista UDS pH Range 6
--- NOTE | 2022-10-09 00:01 | EDS_ITS ---
HPI History of Present Illness Chief Complaint: Other, Pain/Inj Informant: patient Narrative Narrative: Patient presenting asking for a urine drug test for court that is requested of her during a custody cherry. She states she had access to it at juvenile court, but she missed it because she was in the hospital for other reasons earlier today. She denies using drugs. She denies any physical symptoms right now feels okay. [facility] Medical History Anxiety disorder, unspecified Bipolar 1 disorder Cannabis use disorder History of cocaine use History of methamphetamine use History of psychosis PTSD (post-traumatic stress disorder) Home Medications aripiprazole 5 mg tablet (Abilify) 10 mg PO DAILY 01/03/22 [History Last Taken Unknown] escitalopram oxalate 5 mg tablet (Lexapro) 5 mg PO DAILY 10/08/22 [History Last Taken Unknown] Allergy/AdvReac Type Severity Reaction Status Date / Time latex Allergy Rash Verified 10/08/22 11:07 methylphenidate AdvReac Other Verified 10/08/22 11:07 [From Ritalin] sertraline [From Zoloft] AdvReac Other Verified 10/08/22 11:07 Surgical History (Updated 10/08/22 @ 15:[address] Marvin Schmitt, DO) Hx of cervical polypectomy Social History Smoking Status: Current every day smoker tobacco type: cigarettes ROS ROS ED Constitutional Constitutional ED: Denies chills or fever(s) Neurologic Neurologic: Denies headache(s), paresthesias or weakness EXAM Physical Exam Const Vital Signs: 10/08/22 21:15 10/08/22 23:54 Temperature 96.5 F L Temperature Source Temporal Pulse Rate 63 Respiratory Rate 18 Respiratory Effort Normal Non-Labored Respiratory Pattern Normal Blood Pressure 108/69 Blood Pressure Mean 82 Pulse Ox 100 Oxygen Delivery Method Room Air Positive well nourished and well developed General Appearance ED: well developed and NAD Neuro oriented x3, CN's II-XII intact bilaterally, no sensory deficits noted and gait normal Motor Exam: strength 5/5 throughout Psych mental status grossly normal Skin no rashes or lesions noted and no wounds MDM MDM Lab Data Attestation: I reviewed the patient's lab results. Labs: Laboratory Results - last 24 hr 10/08/22 21:22 Urine Opiates Screen NEGATIVE Urine Methadone Screen NEGATIVE Ur Barbiturates Screen NEGATIVE Ur Phencyclidine Scrn NEGATIVE Ur Amphetamines Screen NEGATIVE MDMA (Ecstasy) Screen NEGATIVE U Benzodiazepines Scrn NEGATIVE Urine Cocaine Screen NEGATIVE U Cannabinoids Screen NEGATIVE Ur Drug Screen Comment Discharge Plan Triage Chief Complaint: Other, Pain/Inj ED Provider: Ben Estrada Dx/Rx/DC Orders Clinical Impression: Encounter for medical screening examination Instructions: ED Screening Exam Medical Nonurgent Prescriptions: No Action aripiprazole [Abilify] 5 mg Tablet 10 mg PO DAILY escitalopram oxalate [Lexapro] 5 mg Tablet 5 mg PO DAILY Primary Care Provider: Williams Cevallos Referrals: Williams Cevallos MD [Primary Care Provider] - As Needed Disposition Disposition: Home, Self Care
== END 2022-10-09 00:11 | disposition home or self-care (01) ==
LOC: ED 10-09 00:07
PROVIDERS: Emergency Provider Emergency Medicine; PCP Internal Medicine; Visit Provider Emergency Medicine
DX: Z02.89 Encounter for other administrative examinations (principal); F31.9 Bipolar disorder, unspecified; F41.9 Anxiety disorder, unspecified; F17.210 Nicotine dependence, cigarettes, uncomplicated; Z65.3 Problems related to other legal circumstances; Z79.899 Other long term (current) drug therapy
CPT/HCPCS: 80053; 80307; 81001; 81025; 85025; 87428; 96360; 99282; 99285; J7030; A4216

== ENCOUNTER 2022-10-28 16:16 | Emergency (ER) | payer MEDICAID, SELFPAY ==
[2022-10-28 16:17] VITALS: BP 148/112; PULSE 107; RESP 18; TEMP 36.6; O2SAT 98; BMI 23.8
[2022-10-28 16:22] VITALS: O2SAT 97
--- NOTE | 2022-10-28 16:27 | EX.ED.VIS.UR ---
HPI HPI - URI History of Present Illness Chief Complaint: Cough Detail of Chief Complaint: Cough and shortness of breath Informant: patient Narrative Narrative: Patient presents to the emergency department with complaint of a cough that she had for about 4 days. Patient complains of shortness of breath and wheezing. She has been using her inhaler but not get much relief. She does have history of asthma. She denies any fever. She denies sick contacts. She has had a little bit of a runny nose. Patient states that she took some Benadryl and Claritin thinking it might be allergies to pollen but she does not feel like she is any better. Patient bringing up some clear phlegm at times. She is a smoker. Patient denies recent travel or surgery. No history of PE or DVT. ROS ROS ED Review of Systems ROS Unobtainable: other Constitutional Constitutional ED: Reports lethargy; Denies chills, fever(s), sweats or weight loss Eyes Eyes: Denies blurry vision, change in vision or diplopia ENT ENT ED: Denies rhinorrhea or sore throat Cardiovascular Cardiovascular: Denies chest pain, orthopnea or racing heartbeat Respiratory/Chest Respiratory/Chest: Reports cough and dyspnea; Denies dyspnea on exertion, orthopnea or sputum Gastrointestinal Gastrointestinal: Denies abdominal pain, diarrhea, nausea or vomiting Genitourinary Genitourinary ED: Denies dysuria, hematuria or urinary frequency Musculoskeletal Musculoskeletal: Denies arthralgias, back pain, myalgias or neck pain Integumentary Denies abscess, Abrasions or rash Neurologic Neurologic: Denies headache(s) or weakness Psychiatric Psychiatric: Denies anxiety, depression or suicidal thoughts Endocrine Endocrinology: Denies polydipsia, polyphagia or polyuria Hematologic/Lymphatic Hematologic/Lymphatic: Denies easy bleeding, easy bruising or lymphadenopathy Allergic/Immunologic Allergic/Immunologic ED: Denies mouth swelling, tongue swelling or urticaria [facility] Medical History Anxiety disorder, unspecified Bipolar 1 disorder Cannabis use disorder History of cocaine use History of methamphetamine use History of psychosis PTSD (post-traumatic stress disorder) Home Medications aripiprazole 5 mg tablet (Abilify) 10 mg PO DAILY 01/03/22 [History Last Taken Unknown] escitalopram oxalate 5 mg tablet (Lexapro) 5 mg PO DAILY 10/08/22 [History Last Taken Unknown] prednisone 20 mg tablet 20 mg PO BID #10 tabs 10/28/22 [Rx Last Taken Unknown] Allergy/AdvReac Type Severity Reaction Status Date / Time latex Allergy Rash Verified 10/08/22 11:07 methylphenidate AdvReac Other Verified 10/08/22 11:07 [From Ritalin] sertraline [From Zoloft] AdvReac Other Verified 10/08/22 11:07 Surgical History Hx of cervical polypectomy Social History Smoking Status: Current every day smoker tobacco type: cigarettes EXAM Physical Exam Const Vital Signs: 10/28/22 16:17 10/28/22 16:22 10/28/22 16:38 Temperature 97.9 F Temperature Source Temporal Pulse Rate 107 H 85 Respiratory Rate 18 18 Respiratory Effort Short of Breath Respiratory Depth Normal Respiratory Pattern Normal Normal Blood Pressure 148/112 H Blood Pressure Mean 124 Pulse Ox 98 Oxygen Delivery Method Room Air Room Air Positive well nourished and well developed General Appearance ED: well developed and NAD HEENT Reports TM's clear and moist mucous membranes normocephalic and atraumatic; Negative for trauma or tenderness Tympanic Membrane ED: Yes TM's clear Eyes PERRL and EOMs intact bilaterally General Eye ED: Negative for pale conjunctiva or scleral icterus Neck no lymphadenopathy, supple and no JVD General: Negative for tenderness Chest Wall inspection of chest normal and palpation of chest normal Chest: Negative for tenderness Resp normal respiratory effort Resp Narrative: Patient with some expiratory wheezes noted bilaterally. No significant tachypnea. No sensory muscle use or retractions. Effort and Inspection: Negative for respiratory distress or pain with movement Auscultation: wheezes; Negative for rhonchi or diminished lung sounds Cardio regular rate, regular rhythm, S1 normal heart sound, S2 normal heart sound and no murmurs Peripheral Pulses: pulses 2+ throughout GI normal to inspection, nondistended, normoactive bowel sounds, soft to palpation, non-tender, non-distended and no masses Back/Spine no CVA tenderness and no thoracic nor lumbar tenderness Extremity normal to inspection General Extremety ED: Negative for edema General Extremity: Negative for edema Neuro oriented x3, CN's II-XII intact bilaterally, no sensory deficits noted and gait normal Sensorium / Orientation: awake, alert, oriented to person, oriented to place and oriented to time Motor Exam: strength 5/5 throughout and strength abnormal Psych mental status grossly normal Skin no rashes or lesions noted and no wounds MDM MDM MDM Narrative Medical decision making narrative: Patient presents with cough and shortness of breath and wheezing. In the differential would be asthma exacerbation versus asthmatic bronchitis versus pneumonia. Patient had a COVID and influenza test that were negative. She had a chest x-ray that was unremarkable. She received a DuoNeb aerosol and started on prednisone. At this time she clinically looks well. Will discharge to home with prescription for prednisone. I do not feel antibiotics are indicated. Patient advised to return if increasing shortness of breath or condition should worsen anyway. Radiography Diagnostic Testing: Clinical Impression(s) from Imaging Studies Chest X-Ray 10/28/22 17:23 IMPRESSION: No radiographic evidence of acute cardiopulmonary disease. Electronically Signed: Beau Jeter MD at 17:50 EDT Reading Location ID and State: [facility] / [place] , Service support , 1 view chest x-ray obtained interpreted by myself as no evidence of infiltrate or pneumothorax or acute disease process. Radiology in agreement. Discharge Plan Triage Chief Complaint: Cough ED Provider: Molly Faustin Dx/Rx/DC Orders Clinical Impression: Asthmatic bronchitis Instructions: ED Bronchitis with Wheezing (Adult) Prescriptions: New prednisone 20 mg tablet 20 mg PO BID Qty: 10 0RF No Action aripiprazole [Abilify] 5 mg Tablet 10 mg PO DAILY escitalopram oxalate [Lexapro] 5 mg Tablet 5 mg PO DAILY Primary Care Provider: Williams Cevallos Referrals: Williams Cevallos MD [Primary Care Provider] - 5-7 Days Disposition Disposition: Home, Self Care
[2022-10-28] MEDS: predniSONE 20 MG Tablet 40 MG PO (16:34)
[2022-10-28 16:38] VITALS: PULSE 85; RESP 18
[2022-10-28] MEDS: Ipratropium/Albuterol Sulfate 3 ML AMPUL.NEB INHALATION (16:38)
--- NOTE | 2022-10-28 17:23 | RAD_ITS ---
EXAM: XR CHEST, 1 VIEW CLINICAL INDICATION: dyspnea TECHNIQUE: Frontal view of the chest. COMPARISON: 06.16.21 FINDINGS: LUNGS AND PLEURAL SPACES: Unremarkable. No consolidation or edema. No pneumothorax. No effusion. HEART: Unremarkable. Cardiac silhouette not enlarged. MEDIASTINUM: Central airways and mediastinal contour are unremarkable. BONES/JOINTS: Unremarkable. SOFT TISSUES: Unremarkable. RAD/Chest 1 View (Portable) IMPRESSION: No radiographic evidence of acute cardiopulmonary disease. Electronically Signed: Beau Jeter MD at 17:50 EDT ,
== END 2022-10-28 18:04 | disposition home or self-care (01) ==
PROVIDERS: Emergency Provider Emergency Medicine; PCP Internal Medicine; Visit Provider Emergency Medicine
DX: J45.909 Unspecified asthma, uncomplicated (principal); F17.210 Nicotine dependence, cigarettes, uncomplicated
CPT/HCPCS: 71045; 87428; 94640; 99283

== ENCOUNTER 2022-12-03 21:08 | Emergency (ER) | payer MEDICAID, SELFPAY ==
[2022-12-03 21:09] VITALS: BP 127/81; PULSE 71; RESP 16; TEMP 36.2; O2SAT 99; BMI 23.6
--- NOTE | 2022-12-03 22:10 | RAD_ITS ---
INDICATION: ankle pain, fell and twisted ankle EXAMINATION/TECHNIQUE: X-RAY - RIGHT XR Ankle Min 3 Views COMPARISON: None. FINDINGS: SOFT TISSUES: Soft tissue swelling lateral ankle. No radiopaque foreign body detected. BONES/JOINTS: No acute fracture or subluxation. Normal alignment. Preservation of the joint space(s). No suspicious osseous lesion observed. RAD/Ankle min 3 Views IMPRESSION: Right ankle soft tissue swelling Electronically Signed: Power Alvarado MD at 22:37 EDT ,
--- NOTE | 2022-12-03 22:47 | EX.ED.DYSGE1 ---
HPI History of Present Illness Chief Complaint: Lower Extremity Injury Informant: patient Narrative Narrative: Patient is a 32-year-old female with history of anxiety bipolar disorder and polysubstance abuse. She states that roughly 2 hours ago she was stepping over a railing and her right foot landed on a cement parking block causing it to roll inward. She states that she fell when this happened but denies striking her head or any loss of consciousness. She states she was able to ambulate following the injury but had severe swelling and pain with ambulation and has concern for fracture and therefore comes in for evaluation. [facility] Medical History Anxiety disorder, unspecified Bipolar 1 disorder Cannabis use disorder History of cocaine use History of methamphetamine use History of psychosis PTSD (post-traumatic stress disorder) Home Medications aripiprazole 5 mg tablet (Abilify) 10 mg PO DAILY 01/03/22 [History Last Taken Unknown] escitalopram oxalate 5 mg tablet (Lexapro) 5 mg PO DAILY 10/08/22 [History Last Taken Unknown] prednisone 20 mg tablet 20 mg PO BID #10 tabs 10/28/22 [Rx Last Taken Unknown] Allergy/AdvReac Type Severity Reaction Status Date / Time latex Allergy Rash Verified 12/03/22 21:12 methylphenidate AdvReac Other Verified 12/03/22 21:12 [From Ritalin] sertraline [From Zoloft] AdvReac Other Verified 12/03/22 21:12 Surgical History Hx of cervical polypectomy Social History Smoking Status: Current every day smoker tobacco type: cigarettes ROS ROS ED Constitutional Constitutional ED: Denies chills or fever(s) Eyes Eyes: Denies change in vision ENT ENT ED: Denies sore throat Cardiovascular Cardiovascular: Denies chest pain Respiratory/Chest Respiratory/Chest: Denies cough or dyspnea Gastrointestinal Gastrointestinal: Denies abdominal pain, diarrhea, nausea or vomiting Genitourinary Genitourinary ED: Denies dysuria Musculoskeletal Musculoskeletal: Reports other Details: Positive right ankle pain and swelling Integumentary Denies Abrasions or rash Neurologic Neurologic: Denies headache(s) or paresthesias Hematologic/Lymphatic Hematologic/Lymphatic: Denies easy bleeding or easy bruising EXAM Physical Exam Const Vital Signs: 12/03/22 21:09 12/03/22 22:59 Temperature 97.2 F L Temperature Source Temporal Pulse Rate 71 Respiratory Rate 16 17 Blood Pressure 127/81 H Blood Pressure Mean 96 Pulse Ox 99 Oxygen Delivery Method Room Air Positive well nourished and well developed General Appearance ED: well developed HEENT HEENT Narrative: Normocephalic atraumatic Eyes PERRL and EOMs intact bilaterally Neck supple Resp normal respiratory effort and clear to auscultation bilaterally Cardio regular rate and regular rhythm Extremity Extremity Narrative: Right lower extremity is neurovascularly intact. There is soft tissue swelling mainly along the lateral malleolus with pain on palpation at this site without obvious bony deformity or joint effusion. Achilles tendon is intact. There is mild laxity with stressing of the ATFL of the right compared to left concerning for grade 2 ankle sprain. Remainder of the exam is normal Neuro oriented x3, CN's II-XII intact bilaterally and no sensory deficits noted Sensorium / Orientation: alert Psych mental status grossly normal Skin no rashes or lesions noted Skin Narrative: No abrasions or ecchymosis but there is soft tissue swelling along the right lateral malleolus as documented above MDM MDM MDM Narrative Medical decision making narrative: Patient presented to the ER following a mechanical fall so therefore there is no need for cardiac work-up. Differential diagnosis includes ankle sprain versus ankle fracture versus ankle dislocation. Secondary to this an x-ray was obtained which revealed soft tissue swelling without acute fracture or dislocation. As exam indicates mild ligamentous laxity of the ATFL on the right compared to left this would qualify as a grade 2 ankle sprain. Therefore patient be treated with a walking boot and crutches but is otherwise safe for discharge and can follow-up on an outpatient basis. History & Record Review Discussion w/independent historian: Patient Radiography Diagnostic Testing: Clinical Impression(s) from Imaging Studies Ankle X-Ray 12/03/22 22:10 IMPRESSION: Right ankle soft tissue swelling Electronically Signed: Power Alvarado MD at 22:37 EDT , Right ankle x-rays interpreted by the emergency medicine physician reveals no acute fracture dislocation or joint effusion Discharge Plan Triage Chief Complaint: Lower Extremity Injury ED Provider: Joseph Murphy Dx/Rx/DC Orders Clinical Impression: Grade 2 ankle sprain, History of bipolar disorder Instructions: Understanding Ankle Sprain, ED Ankle Sprain (Adult) Prescriptions: No Action aripiprazole [Abilify] 5 mg Tablet 10 mg PO DAILY escitalopram oxalate [Lexapro] 5 mg Tablet 5 mg PO DAILY prednisone 20 mg tablet 20 mg PO BID Qty: 10 0RF Primary Care Provider: Williams Cevallos Referrals: Williams Cevallos MD [Primary Care Provider] - Activity Restrictions/Additional Instructions: Your x-ray reveals no acute fracture or dislocation. However your exam indicates a grade 2 sprain which is a partial tear specifically of your ATFL/anterior talofibular ligament. Wear your walking boot for the next 2 to 4 weeks while up and moving to help stabilize ankle and reduce pain and speed healing and return to the ER should you have any further concerns Disposition Disposition: Home, Self Care Discharge Date/Time: 12/03/22 23:07
[2022-12-03 22:59] VITALS: RESP 17
== END 2022-12-03 23:07 | disposition home or self-care (01) ==
PROVIDERS: Emergency Provider Emergency Medicine; PCP Internal Medicine; Visit Provider Emergency Medicine
DX: S93.491A Sprain of other ligament of right ankle, initial encounter (principal); F31.9 Bipolar disorder, unspecified; W50.2XXA Accidental twist by another person, initial encounter; Y93.89 Activity, other specified; F17.210 Nicotine dependence, cigarettes, uncomplicated; Z79.899 Other long term (current) drug therapy
CPT/HCPCS: 73610; 99284

== ENCOUNTER 2022-12-21 21:41 | Emergency (ER) | payer MEDICAID, SELFPAY ==
[2022-12-21 21:42] VITALS: BP 121/81; PULSE 74; RESP 18; TEMP 37; O2SAT 99; BMI 24.6
[2022-12-21 22:27] LABS: Amphetamine Urine VISTA NEGATIVE (<1000 ng/mL); Barbiturate Urine VISTA NEGATIVE (< 200 ng/mL); Benzodiazepine Urine VISTA NEGATIVE (< 200 ng/mL); Cocaine Urine VISTA NEGATIVE (< 300 ng/mL); Ecstacy Urine VISTA NEGATIVE (< 500 ng/mL); Methadone Urine VISTA NEGATIVE (< 300 ng/mL); PCP Urine VISTA NEGATIVE (< 25 ng/mL); THC Urine VISTA NEGATIVE (< 50 ng/mL); Vista UDS pH Range 4
--- NOTE | 2022-12-21 23:01 | EX.ED.DYSGE1 ---
HPI History of Present Illness Chief Complaint: Substance Abuse Detail of Chief Complaint: Need drug screen Informant: patient Narrative Narrative: Patient presents requesting urine tox screen. She states that she will get random notices from [address] that she has to have a drug screen. She did not get off work until 7 PM tonight so she presents to the emergency room for the drug screen. [facility] Medical History Anxiety disorder, unspecified Bipolar 1 disorder Cannabis use disorder History of cocaine use History of methamphetamine use History of psychosis PTSD (post-traumatic stress disorder) Home Medications aripiprazole 5 mg tablet (Abilify) 10 mg PO DAILY 01/03/22 [History Last Taken Unknown] escitalopram oxalate 5 mg tablet (Lexapro) 5 mg PO DAILY 10/08/22 [History Last Taken Unknown] prednisone 20 mg tablet 20 mg PO BID #10 tabs 10/28/22 [Rx Last Taken Unknown] Allergy/AdvReac Type Severity Reaction Status Date / Time latex Allergy Rash Verified 12/21/22 21:41 methylphenidate AdvReac Other Verified 12/21/22 21:41 [From Ritalin] sertraline [From Zoloft] AdvReac Other Verified 12/21/22 21:41 Surgical History Hx of cervical polypectomy Social History Smoking Status: Current every day smoker tobacco type: cigarettes ROS ROS ED Constitutional Constitutional ED: Denies chills or fever(s) ENT ENT ED: Denies rhinorrhea or sore throat Cardiovascular Cardiovascular: Denies chest pain Respiratory/Chest Respiratory/Chest: Denies cough or dyspnea Gastrointestinal Gastrointestinal: Denies abdominal pain, nausea or vomiting Musculoskeletal Musculoskeletal: Reports extremity pain; Denies back pain Integumentary Denies Abrasions or rash Neurologic Neurologic: Denies headache(s) or weakness Psychiatric Psychiatric: Denies anxiety or depression Allergic/Immunologic Allergic/Immunologic ED: Denies lip swelling or urticaria EXAM Physical Exam Const Vital Signs: 12/21/22 21:42 Temperature 98.6 F Temperature Source Temporal Pulse Rate 74 Respiratory Rate 18 Blood Pressure 121/81 H Blood Pressure Mean 94 Pulse Ox 99 Positive well nourished and well developed General Appearance ED: well developed HEENT Reports normocephalic and head/scalp atraumatic Eyes PERRL and EOMs intact bilaterally Neck supple Chest Wall inspection of chest normal and palpation of chest normal Resp normal respiratory effort and clear to auscultation bilaterally Cardio regular rate and regular rhythm GI normal to inspection, nondistended, normoactive bowel sounds Palpation: soft Back/Spine no CVA tenderness Extremity Extremity Narrative: Right foot in walking boot. Neuro oriented x3 and no sensory deficits noted Sensorium / Orientation: alert Motor Exam: strength 5/5 throughout Psych mental status grossly normal Skin no rashes or lesions noted MDM MDM MDM Narrative Medical decision making narrative: Urine tox screen was obtained per nursing protocol. This is negative. Copy will be provided on the chart. I did encourage the patient that she needs to make other arrangements for her drug screens rather than presenting to the emergency room on a Saturday night to request a drug screen. Lab Data Labs: Laboratory Results - last 24 hr 12/21/22 21:45 Urine Opiates Screen NEGATIVE Urine Methadone Screen NEGATIVE Ur Barbiturates Screen NEGATIVE Ur Phencyclidine Scrn NEGATIVE Ur Amphetamines Screen NEGATIVE MDMA (Ecstasy) Screen NEGATIVE U Benzodiazepines Scrn NEGATIVE Urine Cocaine Screen NEGATIVE U Cannabinoids Screen NEGATIVE Ur Drug Screen Comment Discharge Plan Triage Chief Complaint: Substance Abuse ED Provider: Madina العلي Dx/Rx/DC Orders Clinical Impression: Encounter for drug screening Prescriptions: No Action aripiprazole [Abilify] 5 mg Tablet 10 mg PO DAILY escitalopram oxalate [Lexapro] 5 mg Tablet 5 mg PO DAILY prednisone 20 mg tablet 20 mg PO BID Qty: 10 0RF Primary Care Provider: Williams Cevallos Referrals: Williams Cevallos MD [Primary Care Provider] - Disposition Disposition: Home, Self Care
== END 2022-12-21 23:14 | disposition home or self-care (01) ==
LOC: ED 23:12
PROVIDERS: Emergency Provider Emergency Medicine; PCP Internal Medicine; Visit Provider Emergency Medicine
DX: Z02.83 Encounter for blood-alcohol and blood-drug test (principal); F17.210 Nicotine dependence, cigarettes, uncomplicated
CPT/HCPCS: 80307; 99282

== ENCOUNTER 2023-01-20 16:44 | Emergency (ER) | payer MEDICAID, SELFPAY ==
[2023-01-20 16:45] VITALS: BP 124/64; PULSE 79; RESP 18; TEMP 36.6; O2SAT 100; BMI 23.6
--- NOTE | 2023-01-20 17:02 | EDS_ITS ---
<Statement entered by Riki Price MD - 01/20/23 20:40> Pt seen & evaluated w/ELIZA. I personally interviewed & exam the pt. I was involved in all aspects of pt's orders, interpretation of results & treatment HPI History of Present Illness Chief Complaint: Substance Abuse Narrative Narrative: Patient presenting today requesting to have a drug screening performed for juvenile court. She just recently got back to the custody of her child and is required to perform random drug screens. She denies any symptoms. [facility] Medical History Anxiety disorder, unspecified Bipolar 1 disorder Cannabis use disorder History of cocaine use History of methamphetamine use History of psychosis PTSD (post-traumatic stress disorder) Home Medications aripiprazole 5 mg tablet (Abilify) 10 mg PO DAILY 01/03/22 [History Last Taken Unknown] escitalopram oxalate 5 mg tablet (Lexapro) 5 mg PO DAILY 10/08/22 [History Last Taken Unknown] prednisone 20 mg tablet 20 mg PO BID #10 tabs 10/28/22 [Rx Last Taken Unknown] Allergy/AdvReac Type Severity Reaction Status Date / Time latex Allergy Rash Verified 01/20/23 16:45 methylphenidate AdvReac Other Verified 01/20/23 16:45 [From Ritalin] sertraline [From Zoloft] AdvReac Other Verified 01/20/23 16:45 Surgical History Hx of cervical polypectomy Social History Smoking Status: Current every day smoker tobacco type: cigarettes ROS ROS ED Constitutional Constitutional ED: Denies chills or fever(s) Cardiovascular Cardiovascular: Denies chest pain Respiratory/Chest Respiratory/Chest: Denies cough or dyspnea Gastrointestinal Gastrointestinal: Denies abdominal pain, nausea or vomiting Musculoskeletal Musculoskeletal: Denies arthralgias or myalgias Neurologic Neurologic: Denies weakness EXAM Physical Exam Const Vital Signs: 01/20/23 16:45 Temperature 97.9 F Temperature Source Temporal Pulse Rate 79 Respiratory Rate 18 Blood Pressure 124/64 H Blood Pressure Mean 84 Pulse Ox 100 Positive well nourished, well developed and no apparent distress General Appearance ED: well developed HEENT Reports normocephalic and head/scalp atraumatic Mouth ED: Yes moist mucous membranes normal Eyes PERRL and EOMs intact bilaterally Neck full ROM and supple Resp normal respiratory effort and clear to auscultation bilaterally Cardio regular rate and regular rhythm Back/Spine normal ROM and normal to inspection Extremity normal to inspection and full ROM Neuro oriented x3, CN's II-XII intact bilaterally, moves all extremities, no focal motor deficits and no sensory deficits noted Sensorium / Orientation: awake and alert Psych mental status grossly normal and thought process normal Skin no rashes or lesions noted and no wounds MDM MDM MDM Narrative Medical decision making narrative: Patient presenting today requesting a urine drug screening. She has to have these randomly performed. Normally she is able to have this performed at the court house but on the weekends she is unsure where she is supposed to go. Drug screening will be obtained. She will be discharged home in stable condition and is comfortable with plan. She does not have any other Complaints. Lab Data Attestation: I reviewed the patient's lab results. Labs: Laboratory Results - last 24 hr 01/20/23 17:26 Ur Drug Screen Comment Discharge Plan Triage Chief Complaint: Substance Abuse ED Midlevel Provider: Belinda Torre ED Provider: Riki Price Dx/Rx/DC Orders Clinical Impression: Encounter for drug screening Instructions: ED Screening Exam Medical Nonurgent Prescriptions: No Action aripiprazole [Abilify] 5 mg Tablet 10 mg PO DAILY escitalopram oxalate [Lexapro] 5 mg Tablet 5 mg PO DAILY prednisone 20 mg tablet 20 mg PO BID Qty: 10 0RF Primary Care Provider: Williams Cevallos Referrals: Williams Cevallos MD [Primary Care Provider] - As Needed Activity Restrictions/Additional Instructions: Follow-up with your PCP as needed. Disposition Disposition: Home, Self Care
[2023-01-20 17:46] LABS: Amphetamine Urine VISTA NEGATIVE (<1000 ng/mL); Barbiturate Urine VISTA NEGATIVE (< 200 ng/mL); Benzodiazepine Urine VISTA NEGATIVE (< 200 ng/mL); Cocaine Urine VISTA NEGATIVE (< 300 ng/mL); Ecstacy Urine VISTA NEGATIVE (< 500 ng/mL); Methadone Urine VISTA NEGATIVE (< 300 ng/mL); PCP Urine VISTA NEGATIVE (< 25 ng/mL); THC Urine VISTA NEGATIVE (< 50 ng/mL); Vista UDS pH Range 5
== END 2023-01-20 17:55 | disposition home or self-care (01) ==
LOC: ED 17:19
PROVIDERS: Physician Assistant; Emergency Provider Emergency Medicine; PCP Internal Medicine; Visit Provider Emergency Medicine
DX: Z02.83 Encounter for blood-alcohol and blood-drug test (principal); F17.210 Nicotine dependence, cigarettes, uncomplicated
CPT/HCPCS: 80307; 99281; 99282

== ENCOUNTER 2023-01-26 19:36 | Emergency (ER) | payer MEDICAID, SELFPAY ==
[2023-01-26 19:37] VITALS: BP 108/79; PULSE 82; RESP 16; TEMP 36.5; BMI 23.8
--- NOTE | 2023-01-26 19:50 | RAD_ITS ---
STUDY: X-RAY - RIGHT ANKLE REASON FOR EXAM: Female, 32 years old. Injury, pain TECHNIQUE: 3 view(s) of the ankle. COMPARISON: None. FINDINGS: Normal visualized distal tibia and fibula. Normal medial and lateral malleoli. Normal tibiotalar articulation and ankle mortise. Normal visualized talus and calcaneus. The visualized subtalar, talonavicular, calcaneocuboid and tarsal articulations are normal. The soft tissue structures are unremarkable. RAD/Ankle min 3 Views IMPRESSION: Normal x-ray examination of the ankle. Electronically Signed: Norris Caldwell (Brooks), at 20:05 EDT ,
--- NOTE | 2023-01-26 19:55 | EDS_ITS ---
HPI History of Present Illness Chief Complaint: Lower Extremity Injury Informant: patient Narrative Narrative: Patient presents with recurrent right lower extremity injury. She is currently in a walking boot. She was initially seen on December 03 after an injury. X-rays here were unremarkable. She followed up with podiatry on December 12 due to continued pain. At that time x-rays revealed a small lucency posteriorly but no definitive evidence of a fracture. Patient wore her walking boot until the end of December, but had increased pain. She was seen again by podiatry on January 17 where repeat x-rays revealed a nondisplaced posterior malleolus fracture. She was placed back in the boot and plan is to treat the fracture nonoperatively. Patient reportedly fell today twisting her right ankle while she was wearing the boot. She is concerned that she may have damaged her ankle further. Patient did take ibuprofen prior to arrival. 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 [facility] Medical History Anxiety disorder, unspecified Bipolar 1 disorder Cannabis use disorder History of cocaine use History of methamphetamine use History of psychosis PTSD (post-traumatic stress disorder) Home Medications aripiprazole 5 mg tablet (Abilify) 10 mg PO DAILY 01/03/22 [History Last Taken Unknown] escitalopram oxalate 5 mg tablet (Lexapro) 5 mg PO DAILY 10/08/22 [History Last Taken Unknown] prednisone 20 mg tablet 20 mg PO BID #10 tabs 10/28/22 [Rx Last Taken Unknown] Allergy/AdvReac Type Severity Reaction Status Date / Time latex Allergy Rash Verified 01/26/23 19:37 methylphenidate AdvReac Other Verified 01/26/23 19:37 [From Ritalin] sertraline [From Zoloft] AdvReac Other Verified 01/26/23 19:37 Surgical History Hx of cervical polypectomy Social History Smoking Status: Current every day smoker tobacco type: cigarettes ROS ROS ED Constitutional Constitutional ED: Denies chills or fever(s) Eyes Eyes: Denies change in vision ENT ENT ED: Denies rhinorrhea or sore throat Cardiovascular Cardiovascular: Denies chest pain Respiratory/Chest Respiratory/Chest: Denies cough or dyspnea Gastrointestinal Gastrointestinal: Denies abdominal pain, nausea or vomiting Genitourinary Genitourinary ED: Denies dysuria Musculoskeletal Musculoskeletal: Reports extremity pain; Denies back pain Integumentary Denies Abrasions or rash Neurologic Neurologic: Denies headache(s) or weakness Allergic/Immunologic Allergic/Immunologic ED: Denies lip swelling or urticaria EXAM Physical Exam Const Vital Signs: 01/26/23 19:37 01/26/23 19:37 Temperature 97.7 F L 97.7 F L Temperature Source Temporal Temporal Pulse Rate 82 82 Respiratory Rate 16 16 Blood Pressure 108/79 108/79 Blood Pressure Mean 88 88 Positive well nourished and well developed General Appearance ED: well developed HEENT Reports normocephalic and head/scalp atraumatic Eyes PERRL and EOMs intact bilaterally Neck supple Chest Wall inspection of chest normal and palpation of chest normal Resp normal respiratory effort and clear to auscultation bilaterally Cardio regular rate and regular rhythm Back/Spine no CVA tenderness Extremity Extremity Narrative: Mild tenderness along the lateral malleolus of the right ankle. Minimal edema. No tenderness of the foot itself with strong pulses. Good sensation. No tenderness at the knee or proximal fibula. Neuro oriented x3 and no sensory deficits noted Sensorium / Orientation: alert Motor Exam: strength 5/5 throughout Psych mental status grossly normal Skin no rashes or lesions noted MDM MDM MDM Narrative Medical decision making narrative: I was able to review the patient's records and [facility] where I was able to see Dr. Smith's last note as well as x-ray results. Repeat right ankle x-rays are obtained tonight to evaluate for any further fracture. Radiography Diagnostic Testing: Clinical Impression(s) from Imaging Studies Ankle X-Ray 01/26/23 19:50 IMPRESSION: Normal x-ray examination of the ankle. Electronically Signed: Norris Caldwell (Bro[place]), at 20:05 EDT Reading Location ID and State: [facility] / [place] , Service support , Treatment and Re-Evaluation Narrative: Right ankle x-rays per my interpretation do reveal periosteal reaction of the posterior malleolus. I am not able to see the prior x-ray where this was found, but I am able to read the report and it sounds unchanged. Patient will continue in her walking boot. I will give her crutches but she may weight-bear as tolerated. She has an appointment to see Dr. Smith this coming week. Discharge Plan Triage Chief Complaint: Lower Extremity Injury ED Provider: Madina العلي Dx/Rx/DC Orders Clinical Impression: Ankle sprain Instructions: ED Ankle Sprain (Adult) Prescriptions: No Action aripiprazole [Abilify] 5 mg Tablet 10 mg PO DAILY escitalopram oxalate [Lexapro] 5 mg Tablet 5 mg PO DAILY prednisone 20 mg tablet 20 mg PO BID Qty: 10 0RF Primary Care Provider: Williams Cevallos Referrals: Nehemiah Smith DPM [Med Staff - Active Staff] - Keep Shan appointment Williams Cevallos MD [Primary Care Provider] - Disposition Disposition: Home, Self Care
[2023-01-26 20:52] VITALS: RESP 18
== END 2023-01-26 20:53 | disposition home or self-care (01) ==
PROVIDERS: Emergency Provider Emergency Medicine; PCP Internal Medicine; Visit Provider Emergency Medicine
DX: S93.401A Sprain of unspecified ligament of right ankle, initial encounter (principal); F17.210 Nicotine dependence, cigarettes, uncomplicated; X58.XXXA Exposure to other specified factors, initial encounter
CPT/HCPCS: 73610; 99283

== ENCOUNTER 2023-02-23 13:33 | Emergency (ER) | payer MEDICAID, SELFPAY ==
[2023-02-23 13:35] VITALS: BP 110/71; PULSE 89; RESP 16; TEMP 36; O2SAT 98; BMI 24.1
--- NOTE | 2023-02-23 13:50 | CT_ITS ---
INDICATION: Paresthesia EXAMINATION: CT BRAIN - CT Head or Brain W/O Contrast Injection TECHNIQUE: Multiple axial images were obtained of the head without intravenous contrast. A radiation dose optimization technique was used for this scan. IV Contrast dosage and agent: None. RADIATION DOSAGE (If Supplied By Facility): CTDIvol = ( 44.99 ) mGy, DLP = ( 796.11 ) mGycm COMPARISON: No relevant prior comparison study available FINDINGS: BRAIN PARENCHYMA: No intra- or extra-axial hemorrhage. No evidence of acute infarct. No intracranial mass or mass effect. There is preservation of the freitas/white matter interface. Fluid density in the right occipital fossa probably due to fluid in the right tentorial edge region or could be due to old insult. CSF SPACES: Appropriate for age. No hydrocephalus. Basal cisterns are patent. CALVARIUM, SKULL BASE, PARANASAL SINUSES AND MASTOID AIR CELLS: Cortical thickening of the ethmoids and maxillary sinuses. No discrete lytic or blastic abnormalities. ORBITS: Both globes, extraocular muscles, optic nerves and retrobulbar fat appear grossly unremarkable. CT/Brain/Head without Contrast IMPRESSION: 1. No acute intracranial process as described above. 2. If symptoms persist, MRI of the brain might be of value. Electronically Signed: Jose Francisco Taveras MD at 15:10 EDT ,
--- NOTE | 2023-02-23 13:51 | ED.VIS.STROK ---
HPI History of Present Illness Chief Complaint: Numb/Ting Narrative Narrative: Presents with right-sided paresthesias both arm and leg. She woke up like this this morning. She has no other symptoms she has no weakness. No facial involvement she does not have a headache. No vision changes. No chest pain or shortness of breath. Confusion and aphasia or slurred speech PFSH [facility] Medical History Anxiety disorder, unspecified Bipolar 1 disorder Cannabis use disorder History of cocaine use History of methamphetamine use History of psychosis PTSD (post-traumatic stress disorder) Home Medications aripiprazole 5 mg tablet (Abilify) 10 mg PO DAILY 01/03/22 [History Last Taken Unknown] escitalopram oxalate 5 mg tablet (Lexapro) 5 mg PO DAILY 10/08/22 [History Last Taken Unknown] prednisone 20 mg tablet 20 mg PO BID #10 tabs 10/28/22 [Rx Last Taken Unknown] Allergy/AdvReac Type Severity Reaction Status Date / Time latex Allergy Rash Verified 02/23/23 13:33 methylphenidate AdvReac Other Verified 02/23/23 13:33 [From Ritalin] sertraline [From Zoloft] AdvReac Other Verified 02/23/23 13:33 Surgical History Hx of cervical polypectomy Social History Smoking Status: Current every day smoker tobacco type: cigarettes ROS ROS ED ROS Narrative Past medical history: Reviewed Medications: Reviewed Social history: Noncontributory Review of systems: All systems negative except as indicated General: No fever Eyes: No visual changes ENT: No upper airway congestion, normal voice Neck: No neck pain Cardiovascular: No chest pain Respiratory: No shortness of breath or cough Gastrointestinal: No abdominal pain, nausea vomiting or diarrhea Genitourinary: No dysuria Musculoskeletal: Denies myalgias no difficulty with ambulation Skin: No rash Neurological: No memory loss, confusion or any focal weakness. Numbness and tingling as in HPI Psych: No recent behavioral changes Hematologic: No easy bleeding or easy bruising EXAM Physical Exam Narrative Exam Narrative: Physical exam General: Well nourished, Well developed, No Acute Distress Head: Normocephalic, Atraumatic Eyes: Conjunctiva not pale ENT: Moist mucous membranes Neck: Supple, Nontender, No lymphadenopathy Cardiovascular: Regular rate, Regular rhythm Respiratory: No distress, CTA bilaterally Abdomen: Soft, Nontender, Nondistended Back: Nontender, Normal Inspection. Negative for: CVA tenderness Extremities: Nontender, No edema Skin: Normal color, No rash Neurological: Alert, Normal Strength, Normal Sensation Psychological: Normal affect Const Vital Signs: 02/23/23 13:35 Temperature 96.8 F L Temperature Source Temporal Pulse Rate 89 Respiratory Rate 16 Blood Pressure 110/71 Blood Pressure Mean 84 Pulse Ox 98 Oxygen Delivery Method Room Air NIHSS NIHSS Initial: 1a Level of Consciousness: 0 1b LOC Questions (Score 2 if aphasic/stupor): 0 1c LOC Commands (Only score 1st attempt): 0 2 Best Gaze (If aphasic, use reflexive mvmts.): 0 3 Visual: 0 4 Facial Palsy: 0 5 Motor Arm Right (UN = amputation/fusion): 0 5 Motor Arm Left: 0 6 Motor Leg Right: 0 6 Motor Leg Left: 0 7 Limb ataxia (Only + if out of proportion): 0 8 Sensory (Aphasia/stupor=0 or 1, coma=2): 0 9 Best Language: 0 10 Dysarthria (mute, coma=2, intubated=UN): 0 11 Extinction and Inattention (only scored if +): 0 Total Score: 0 MDM MDM MDM Narrative Medical decision making narrative: At this time NIH is 0, she has no sensory deficit just paresthesias. She has a normal CT. I do not believe this is a stroke, I do not believe there is any other etiology to her symptoms, she may need to follow-up with neurology and may be get an MRI or work-up for MS however I do not believe any further blood work imaging or anything else is needed at the ED she has no neck pain I do not believe this is discogenic in etiology. Since its only unilateral I am not worried about electrolyte abnormalities therefore blood work will not be ordered. She appears well, she is walking well she is able to do her ADLs and has no other issues she does not meet admission criteria or emergent MRI criteria I will discharge her in stable condition. Radiography Diagnostic Testing: Clinical Impression(s) from Imaging Studies Brain CT 02/23/23 13:50 IMPRESSION: 1. No acute intracranial process as described above. 2. If symptoms persist, MRI of the brain might be of value. Electronically Signed: Jose Francisco Taveras MD at 15:10 EDT , Discharge Plan Triage Chief Complaint: Numb/Ting ED Provider: Riki Price Dx/Rx/DC Orders Clinical Impression: Paresthesia, Anxiety Prescriptions: No Action aripiprazole [Abilify] 5 mg Tablet 10 mg PO DAILY escitalopram oxalate [Lexapro] 5 mg Tablet 5 mg PO DAILY prednisone 20 mg tablet 20 mg PO BID Qty: 10 0RF Primary Care Provider: Williams Cevallos Referrals: Williams Cevallos MD [Primary Care Provider] - 3-5 Days Disposition Disposition: Home, Self Care
[2023-02-23 15:48] VITALS: PULSE 65; RESP 14; O2SAT 98
== END 2023-02-23 15:56 | disposition home or self-care (01) ==
PROVIDERS: Emergency Provider Emergency Medicine; PCP Internal Medicine; Visit Provider Emergency Medicine
DX: R20.2 Paresthesia of skin (principal); F41.9 Anxiety disorder, unspecified; F17.210 Nicotine dependence, cigarettes, uncomplicated
CPT/HCPCS: 70450; 99282

== ENCOUNTER 2024-01-19 20:38 | Emergency (ER) | payer MEDICAID, SELFPAY ==
[2024-01-19 20:39] VITALS: BP 120/81; PULSE 89; RESP 14; TEMP 35.7; O2SAT 100; BMI 21.0
--- NOTE | 2024-01-19 21:06 | EDS_ITS ---
HPI <PAULINE Boland - Last Filed: 01/19/24 21:12> History of Present Illness Chief Complaint: Lower Extremity Injury Narrative Narrative: Patient is a 33-year-old female with history of bipolar, anxiety depression presents to the emerged part with left foot injury. Patient states she accidentally scraped her bottom of her foot on a drainage grate. Tetanus is unknown. Denies any concern for foreign body. Patient was barefoot. PFSH <PAULINE Boland - Last Filed: 01/19/24 21:12> PFSH Medical History Anxiety disorder, unspecified Bipolar 1 disorder Cannabis use disorder History of cocaine use History of methamphetamine use History of psychosis PTSD (post-traumatic stress disorder) Home Medications ?Medication ?Instructions ?Recorded ?Last Taken ?Type aripiprazole 5 mg tablet (Abilify) 10 mg PO DAILY 01/03/22 Unknown History escitalopram oxalate 5 mg tablet 5 mg PO DAILY 10/08/22 Unknown History (Lexapro) Allergy/AdvReac Type Severity Reaction Status Date / Time latex Allergy Rash Verified 01/19/24 20:38 methylphenidate (From AdvReac Other Verified 01/19/24 20:38 Ritalin) sertraline (From Zoloft) AdvReac Other Verified 01/19/24 20:38 Surgical History Hx of cervical polypectomy Social History Smoking Status: Current every day smoker tobacco type: cigarettes ROS <PAULINE Boland - Last Filed: 01/19/24 21:12> ROS ED ROS Narrative Constitutional: Negative for fever, chills, weight loss, weakness Eyes: Negative for vision loss, vision change, double vision ENT: Negative for any sore throat, ear pain, congestion Cardiovascular: Negative for any chest pain, tightness, palpitations Respiratory: Negative for any cough, sputum production, hemoptysis, dyspnea, dyspnea on exertion, orthopnea Gastrointestinal: Negative for any abdominal pain, nausea, vomiting, diarrhea, constipation, blood in stool, blood in vomit : Negative for any urinary frequency, dysuria, retention, blood in urine Muscle skeletal: Negative for any neck pain, back pain Neurological: Negative for any headache, syncope, dizziness Skin: Negative for any rashes, itching, lacerations. Positive abrasion to the left foot Psychiatric: Negative for any depression, anxiety, stress, suicidal ideation, homicidal ideation Hematologic: Negative for any excessive bruising, easy bleeding EXAM <PAULINE Boland - Last Filed: 01/19/24 21:12> Physical Exam Narrative Exam Narrative: Vital signs reviewed. megaly Extremities: No peripheral edema, no signs of gross trauma or deformity. Active full range of motion of all extremities. Patient has a small abrasion/superficial laceration to the plantar aspect of the left foot. No foreign body noted. No signs of cellulitis. Neuro: Cranial nerves II through XII intact, no focal neurological deficits. Skin: Clean dry and intact with no rash, purpura, petechiae, vesicles or pustules. Backs/flank: No CVA tenderness, no midline spinal tenderness, no deformity. Psych: Normal mood and affect. No SI, HI or acute psychosis. Const Vital Signs: 01/19/24 20:39 Temperature 96.3 F L Temperature Source Temporal Pulse Rate 89 Respiratory Rate 14 Blood Pressure 120/81 H Blood Pressure Mean 94 Pulse Ox 100 Oxygen Delivery Method Room Air Positive well nourished and well developed General Appearance ED: well developed <Dr. Yony Deleon MD - Last Filed: 01/19/24 21:11> Physical Exam Const Vital Signs: 01/19/24 20:39 Temperature 96.3 F L Temperature Source Temporal Pulse Rate 89 Respiratory Rate 14 Blood Pressure 120/81 H Blood Pressure Mean 94 Pulse Ox 100 Oxygen Delivery Method Room Air MDM <PAULINE Boland - Last Filed: 01/19/24 21:12> [facility] Treatment and Re-Evaluation :: Differential diagnosis includes however is not limited to: Foreign body, cellulitis, superficial laceration Patient is in no obvious distress, nontoxic, vital signs are stable. Presenting to the emergency department with complaints of left foot injury after stepping on a metal drain. Tetanus vaccinations up-to-date 7 years ago, she does not need one at this time. Patient's wound is superficial, is to be cleaned out with warm soapy water. Bacitracin ointment will be placed. Patient to keep the area clean and dry. At this time, do not believe the patient needs any oral antibiotics. The laceration is superficial, does not require any sutures. Patient to keep an eye on it, keep it clean and dry. Instructed return for any worsening symptoms. Patient stable for discharge. <Dr. Yony Deleon MD - Last Filed: 01/19/24 21:11> [facility] Narrative Medical decision making narrative: I have personally performed a face to face assessment of the patient and have reviewed the ELIZA Note. I performed a substantive portion of the visit including all aspects of the following. My ponce findings include: History is 33-year-old female injured above her left foot on a drain at home about 30 minutes to an hour ago. No other complaints. No fall or injury. Exam is [well-appearing 33-year-old female. Vital signs stable afebrile. Exam normal except bottom of her left foot midportion she is about dime sized abrasion with loss of skin. No deep laceration does not need to be repaired. No bleeding. clean and dressed. Antibiotic ointment. Clean daily watch for any signs of infection. Patient is comfortable plan.] Medical Decision Making [clean and dress and DC.] Other additions or changes: [None] Discharge Plan Triage Chief Complaint: Lower Extremity Injury Other Complaint: Wound ED Midlevel Provider: Riki Reyes ED Provider: Yony Deleon Dx/Rx/DC Orders Clinical Impression: Foot laceration Instructions: ED Laceration, Foot: All Closures Prescriptions: No Action aripiprazole [Abilify] 5 mg Tablet 10 mg PO DAILY escitalopram oxalate [Lexapro] 5 mg Tablet 5 mg PO DAILY Primary Care Provider: Williams Cevallos Referrals: Williams Cevallos MD [Primary Care Provider] - Activity Restrictions/Additional Instructions: Keep the area clean and dry. Print Language: Mohawk Disposition Disposition: Home, Self Care
== END 2024-01-19 21:20 | disposition home or self-care (01) ==
LOC: ED 21:13
PROVIDERS: Emergency Provider Emergency Medicine; PCP Internal Medicine; Visit Provider Emergency Medicine
DX: S91.312A Laceration without foreign body, left foot, initial encounter (principal); W22.8XXA Striking against or struck by other objects, initial encounter; Y92.009 Unspecified place in unspecified non-institutional (private) residence as the place of occurrence of the external cause; F17.210 Nicotine dependence, cigarettes, uncomplicated
CPT/HCPCS: 99283

== ENCOUNTER 2024-02-08 16:38 | Emergency (ER) | payer MEDICAID, SELFPAY ==
[2024-02-08 16:39] VITALS: BP 118/90; PULSE 97; RESP 15; TEMP 36.2; O2SAT 100; BMI 20.7
--- NOTE | 2024-02-08 16:57 | ED.VIS.LOWEX ---
HPI History of Present Illness Chief Complaint: Lower Extremity Injury Narrative Narrative: 33-year-old female presents with injury to her left heel on her foot that she sustained at 11:00 this morning, approximately 6 hours ago. She states that she was at [employer], and went to jump in the corn. After her child did. She did not realize that it was not that deep, and she states she hit the back end of her heel against the wall. She now has pain with weightbearing. She denies falling or hitting her head or other injury and states that she has been walking around on her toes because every time she puts pressure on it, she has pain at the very back of her heel. She denies other injuries. [facility] Medical History Bipolar 1 disorder History of psychosis History of cocaine use History of methamphetamine use Cannabis use disorder PTSD (post-traumatic stress disorder) Anxiety disorder, unspecified Home Medications ?Medication ?Instructions ?Recorded ?Last Taken ?Type aripiprazole 5 mg tablet (Abilify) 10 mg PO DAILY 01/03/22 Unknown History escitalopram oxalate 5 mg tablet 5 mg PO DAILY 10/08/22 Unknown History (Lexapro) Allergy/AdvReac Type Severity Reaction Status Date / Time latex Allergy Rash Verified 02/08/24 17:36 methylphenidate (From AdvReac Other Verified 02/08/24 17:36 Ritalin) sertraline (From Zoloft) AdvReac Other Verified 02/08/24 17:36 Surgical History Hx of cervical polypectomy Social History Smoking Status: Current every day smoker tobacco type: cigarettes ROS ROS ED ROS Narrative Focused review of systems positive for left heel pain, worse with weightbearing and walking. Denies other injuries. EXAM Physical Exam Narrative Exam Narrative: GCS 15. ABCs intact. Cardiovascular examination reveals a regular rate and rhythm. Lungs are clear to auscultation bilaterally. Abdomen soft and nontender with normal active bowel sounds. Inspection of the left foot does reveal mild tenderness to palpation on the very posterior aspect of her heel/calcaneus. No palpable Achilles tendon deficit. Able to plantarflex and dorsiflex the foot. Palpable dorsalis pedis pulse. There is slight bruising noted on the skin of her left heel where she is most tender. EHL intact. No malleoli tenderness. Const Vital Signs: 02/08/24 16:39 Temperature 97.2 F L Temperature Source Temporal Pulse Rate 97 Respiratory Rate 15 Blood Pressure 118/90 H Blood Pressure Mean 99 Pulse Ox 100 Oxygen Delivery Method Room Air MDM MDM MDM Narrative Medical decision making narrative: I offered the patient oral analgesia, but she declined. Concern is for heel contusion/calcaneus contusion versus fracture. X-rays were obtained of the left foot and 3 views and interpreted by myself independently. I see no evidence of fracture of the foot or calcaneus on my independent interpretation. At this point in time, she continue ice and elevation of her left foot at home. She was placed in a postoperative shoe for comfort. She was referred to her primary care provider, and to podiatry as needed. I feel she can be discharged to follow-up. Return instructions reviewed. Disposition is discharged home in stable condition. Radiography Diagnostic Testing: Clinical Impression(s) from Imaging Studies Foot X-Ray 02/08/24 17:00 IMPRESSION: Normal x-ray examination of the foot. Electronically Signed: Eusebio Chapin MD at 17:55 EDT , Discharge Plan Triage Chief Complaint: Lower Extremity Injury ED Provider: Amadeo Odonnell Dx/Rx/DC Orders Clinical Impression: Contusion of left heel, Foot pain, left Instructions: ED Foot Contusion Prescriptions: No Action aripiprazole [Abilify] 5 mg Tablet 10 mg PO DAILY escitalopram oxalate [Lexapro] 5 mg Tablet 5 mg PO DAILY Primary Care Provider: Williams Cevallos Referrals: Michael Scruggs DPM [Med Staff - Active Staff] - As Needed Williams Cevallos MD [Primary Care Provider] - 1 Week if not improving Activity Restrictions/Additional Instructions: Take Tylenol or ibuprofen as needed for pain as directed. Ice and elevate your left heel when possible. Print Language: Dominican Disposition Disposition: Home, Self Care Discharge Date/Time: 02/08/24 18:20
--- NOTE | 2024-02-08 17:00 | RAD_ITS ---
STUDY: X-RAY - LEFT FOOT CLINICAL: Female, 33 years old. Trauma TECHNIQUE: 3 view(s) of the foot. COMPARISON: None. FINDINGS: Normal talus, calcaneus, and tarsal bones. Normal visualized subtalar, talonavicular, calcaneocuboid, tarsal and tarsometatarsal articulations. Normal metatarsi. Normal metatarsophalangeal joint of the great toe. Normal tibial and fibular sesamoid bones. Normal interphalangeal joint of the great toe. Normal phalanges of the great toe. Normal second through fifth metatarsophalangeal joints. Normal interphalangeal joints and phalanges of the lesser toes. The soft tissue structures are unremarkable. RAD/Foot min 3 Views IMPRESSION: Normal x-ray examination of the foot. Electronically Signed: Eusebio Chapin MD at 17:55 EDT ,
== END 2024-02-08 18:20 | disposition home or self-care (01) ==
PROVIDERS: Emergency Provider Emergency Medicine; PCP Internal Medicine; Visit Provider Emergency Medicine
DX: S90.32XA Contusion of left foot, initial encounter (principal); W22.01XA Walked into wall, initial encounter; Y93.89 Activity, other specified; Y99.8 Other external cause status; Y92.79 Other farm location as the place of occurrence of the external cause; F17.210 Nicotine dependence, cigarettes, uncomplicated
CPT/HCPCS: 73630; 99282

== ENCOUNTER 2024-12-25 13:42 | Emergency (ER) | payer MEDICAID, SELFPAY ==
[2024-12-25 13:43] VITALS: BP 115/77; PULSE 88; RESP 18; TEMP 37; O2SAT 99; BMI 18.4
--- NOTE | 2024-12-25 13:55 | RAD_ITS ---
PROCEDURE: FOOT MIN 3 VIEWS 12/25/2024 REASON FOR EXAM: INJURY TECHNIQUE: FOOT MIN 3 VIEWS COMPARISON: None. FINDINGS: No evidence of acute fracture or dislocation. The soft tissues are unremarkable. RAD/Foot min 3 Views IMPRESSION: No acute osseous abnormality. Reading Location: [id number]
--- NOTE | 2024-12-25 13:55 | RAD_ITS ---
PROCEDURE: ANKLE MIN 3 VIEWS 12/25/2024 REASON FOR EXAM: INJURY TECHNIQUE: ANKLE MIN 3 VIEWS COMPARISON: None. FINDINGS: No evidence of acute fracture or dislocation. The soft tissues are unremarkable. RAD/Ankle min 3 Views IMPRESSION: No acute osseous abnormalities. Reading Location: [id number]
== END 2024-12-25 14:55 | disposition left against medical advice (07) ==
LOC: ED 15:00
PROVIDERS: PCP Internal Medicine
DX: Z00.00 Encounter for general adult medical examination without abnormal findings (principal)
CPT/HCPCS: 73610; 73630